=== PATIENT | female | born 1950 | race Caucasian/White ===

== ENCOUNTER → 2019-03-12 09:20 | Outpatient (BNVA) | payer MEDICARE, OTHER, SELFPAY | PROVIDERS: PCP Nurse Practitioner Family; Referring Provider Nurse Practitioner Family; Visit Provider Physical Therapy Assistant | DX: Z12.11 Encounter for screening for malignant neoplasm of colon (principal); I10 Essential (primary) hypertension; E11.9 Type 2 diabetes mellitus without complications ==

== ENCOUNTER 2019-05-08 06:04 | Day surgery (SDC) | payer MEDICARE, OTHER, SELFPAY ==
[2019-05-08 06:16] VITALS: BP 157/91; PULSE 94; RESP 18; TEMP 36.5; O2SAT 97
[2019-05-08] MEDS: Lactated Ringers 1,000 ML 80 ML IV (06:33)
--- NOTE | 2019-05-08 07:17 | W.PM.DSUDISC ---
Discharge Plan Disposition Patient Disposition: HOME Condition: Good Discharge Details Reason For Visit: Colonoscopy Attending Provider: Lynda Hooker Primary Care Provider: Paras Garcia Home Meds and New Rx's Prescriptions: Continued levothyroxine 25 mcg capsule 25 mcg PO DAILY RF: 0 atorvastatin 10 mg tablet 10 mg PO DAILY RF: 0 multivitamin 1 EACH tablet 1 tab PO DAILY RF: 0 calcium citrate-vitamin D3 1 EACH tablet 1 tab PO DAILY RF: 0 lisinopril 40 MG tablet 1 tab PO DAILY Qty: 90 RF: 0 aspirin [Aspir-81] 81 MG tablet,delayed release (DR/EC) 81 mg PO DAILY RF: 0 Discontinued polyethylene glycol 3350 17 gram/dose powder 238 g PO ONCE Qty: 238 RF: 0 bisacodyl [Dulcolax (bisacodyl)] 5 mg tablet,delayed release (DR/EC) 5 mg PO ONCE Qty: 4 RF: 0 Discharge Instructions Additional Instructions: Findings: Your colonoscopy showed diverticulosis. No polyps were found. Follow up: Consider screening colonoscopy in 10 years depending on overall health. Please call if you develop: fevers >101.5 Nausea or Vomiting Abdominal pain that is not transient DAY SURGERY UNIT POST COLONOSCOPY INSTRUCTIONS 1. Because there will be medication in your system for the next 24 hours, you may feel a little sleepy. Your coordination will be affected. Therefore: a. Do not drive or operate dangerous equipment for 24 hours. b. Do not drink alcohol beverages for 24 hours (not even beer). c. Plan to go home and rest for the day. 2. Generally there are no restrictions on your activity after a day or so has gone by, but you may feel a bit fatigued for a few days. 3 After you arrive home you may have a light meal and return to a normal diet as you can tolerate it without feeling sick to your stomach. 4. After surgery, you may feel pain or discomfort. This should be only transient, but if it persists please contact your doctor. 5. If there are any questions regarding the findings of your procedure, please feel free to contact your doctor. 6. If you are unable to contact your doctor with a problem, contact the hospital at [phone]. 7. Continue all your regular medications unless directed otherwise. I understand the above instructions and have no questions. Signature of Patient or Responsible Adult Escort Date/Time Name of Responsible Adult Escort Signature of Nurse Date/Time Activity:: Activity as Tolerated Diet:: As Tolerated Discharge Orders Discharge Orders: Discharge Order (Routine); Ordered 05/08/19 Ordered By: Lynda Hooker DS: Diagnosis Discharge Diagnosis (1) Diverticulosis: Status: Acute
[2019-05-08 08:20] VITALS: BP 127/64; PULSE 77; RESP 18; TEMP 36.4; O2SAT 95
--- NOTE | 2019-05-08 11:11 | COLE_ITS ---
DATE OF PROCEDURE: May 08, 2019 PREOPERATIVE DIAGNOSIS: Screening. POSTOPERATIVE DIAGNOSIS: Diverticulosis. PROCEDURE: Colonoscopy. SURGEON: Lynda Hooker M.D. ANESTHESIA: Monitored Anesthesia Care INDICATIONS: This is a 69-year-old woman who presents for routine colon evaluation. Her last colono scopy in 2008 showed diverticulosis. She has no family history of colon cancer. PROCEDURE: She was placed in the left Gibbs position. Propofol was titrated to sedation. Digital re ctal examination revealed no abnormalities. The scope was advanced to the cecum without difficulty. The ileocecal valve and appendiceal orifice were clearly identified. Her prep was excellent. The d istal ileum was briefly intubated and appeared normal. The scope was slowly withdrawn with no abnorm alities seen within the ascending, transverse, descending, sigmoid colon or rectum with the exception of moderate sigmoid diverticulosis. She was also noted to have some scattered diverticula throughou t the remainder of the colon, including the right colon. The rectum was normal, including on retrofl ex view. She tolerated the procedure well and was stable to recovery. She can consider a screening colonoscopy again in ten years depending on her overall health. cc: Paras Garcia DNP, MANUFACTURING SOFTWARE ENGINEER-C
== END 2019-05-08 08:25 | disposition home or self-care (01) ==
PROVIDERS: PCP Nurse Practitioner Family; Visit Provider Surgery
PROC: 0DJD8ZZ Inspection of Lower Intestinal Tract, Via Natural or Artificial Opening Endoscopic (ICD-10-PCS; CPT 45378; principal; 2019-05-08 07:30)
DX: Z12.11 Encounter for screening for malignant neoplasm of colon (principal); K57.30 Diverticulosis of large intestine without perforation or abscess without bleeding
CPT/HCPCS: G0121; J2250; J3010

== ENCOUNTER 2019-05-15 09:26 | Outpatient (REF) | payer MEDICARE, OTHER, SELFPAY ==
[2019-05-15 19:09] LABS: HCT 45.2 % (36.0-46.0); HGB 15.5 g/dL (12.0-15.5); Mean Corp. HGB Concentration 34.3 g/dL (32.0-36.0); Mean Corpuscular Hemoglobin 31.9 pg (27.0-33.0); Mean Platelet Volume 11.6 fL (8.0-11.0); Platelet Count 250 x1000/uL (130-400); RBC 4.86 m/cumm (4.00-5.20); RBC Distribution Width 12.3 % (11.7-14.6); White Blood Cell Count 5.26 k/cumm (4.4-10.8)
[2019-05-15 19:29] LABS: ALT 31 U/L (14-59); AST 17 U/L (15-37); Albumin 3.8 g/dL (3.4-5.0); Alkaline Phosphatase 105 U/L (46-116); Anion Gap 9.4 mmol/L (3-11); BUN 14 mg/dL (7-18); Bilirubin, Total 0.5 mg/dL (0.2-1.0); CO2 28.6 mmol/L (21.0-32.0); CREATININE 0.64 mg/dL (0.55-1.02); Calcium 8.9 mg/dL (8.5-10.1); Calculated LDL 92 mg/dL; Chloride 103 mmol/L (98-107); Cholesterol 173 mg/dL (50-200); Glucose 169 mg/dL (70-100); HDL Cholesterol 58 mg/dL (40-60); Potassium 4.4 mmol/L (3.5-5.1); Sodium 141 mmol/L (136-145); TSH (W/Ref FT4) 3.34 uIU/mL (0.36-3.74); Total Protein 7.3 g/dL (6.4-8.2); Triglyceride 118 mg/dL (30-150)
== END 2019-05-15 09:46 ==
LOC: NCHCN 09:26
PROVIDERS: PCP Nurse Practitioner Family; Visit Provider Nurse Practitioner Family
DX: E03.9 Hypothyroidism, unspecified (principal); I10 Essential (primary) hypertension; E11.9 Type 2 diabetes mellitus without complications
CPT/HCPCS: 80053; 80061; 83721; 85027; 84443

== ENCOUNTER 2019-06-01 00:31 | Outpatient (CLI) | payer MEDICARE, OTHER, SELFPAY ==
--- NOTE | 2019-06-01 15:41 | DI.MAMMO_ITS ---
SYMPTOM/DIAGNOSIS: SCREENING Z12.31, FAM HX Z80.3 MAMMOGRAMS: 06/01 Mammograms were interpreted according to the usual protocol including computer analysis with CAD system, tomosynthesis and C view imaging. The breasts are of moderate density with fairly symmetrical distribution of fibroglandular tissue. No dominant mass or clumped microcalcification identified in either breast. The current examination is compared with previous examinations including March 2016 and there has been no gross interval change in appearance in comparison with the previous studies. CONCLUSION: No specific evidence of malignancy at this time. Routine screening examinations are suggested at yearly intervals due to the family history of breast carcinoma. Category 1, breast density category B MQSA ASSESSMENT OF FINDINGS: Negative. Category 1. Patient will receive a letter notifying them of these results. BI-RADS category B. There are scattered areas of fibroglandular density.
== END 2019-06-01 00:51 ==
PROVIDERS: PCP Nurse Practitioner Family; Visit Provider Nurse Practitioner Family
DX: Z12.31 Encounter for screening mammogram for malignant neoplasm of breast (principal); Z80.3 Family history of malignant neoplasm of breast
CPT/HCPCS: 77063; 77067

== ENCOUNTER 2020-05-23 19:34 | Outpatient (REF) | payer MEDICARE, OTHER, SELFPAY ==
[2020-05-23 19:48] LABS: ALT 31 U/L (14-59); AST 18 U/L (15-37); Albumin 3.8 g/dL (3.4-5.0); Alkaline Phosphatase 106 U/L (46-116); Anion Gap 8.7 mmol/L (3-11); BUN 18 mg/dL (7-18); Bilirubin, Total 0.5 mg/dL (0.2-1.0); CO2 29.3 mmol/L (21.0-32.0); CREATININE 0.75 mg/dL (0.55-1.02); Calcium 9.2 mg/dL (8.5-10.1); Chloride 104 mmol/L (98-107); Glucose 206 mg/dL (74-106); Potassium 4.1 mmol/L (3.5-5.1); Sodium 142 mmol/L (136-145); TSH (W/Ref FT4) 1.56 uIU/mL (0.36-3.74)
[2020-05-23 19:50] LABS: Hemoglobin A1C 6.8 % (<5.7)
== END 2020-05-23 19:54 ==
LOC: NCHCN 19:34
PROVIDERS: PCP Nurse Practitioner Family; Visit Provider Nurse Practitioner Family
DX: E03.9 Hypothyroidism, unspecified (principal); E11.9 Type 2 diabetes mellitus without complications; I10 Essential (primary) hypertension
CPT/HCPCS: 80053; 83036; 84443

== ENCOUNTER 2021-01-05 16:27 | Outpatient (REF) | payer MEDICARE, OTHER, SELFPAY ==
[2021-01-05 18:18] LABS: HCT 46.3 % (36.0-46.0); HGB 15.8 g/dL (11.2-15.7); MCH 31.8 pg (27.0-33.0); MCHC 34.1 % (32.0-36.0); MCV 93.2 fL (80-95); MPV 11.7 fL (8.0-11.0); Platelet Count 224 10^3/uL (130-400); RBC 4.97 10^6/uL (3.93-5.22); RDW 11.9 % (11.7-14.6); RDW-SD 39.6 fL; WBC 5.51 10^3/uL (4.4-10.8)
[2021-01-05 18:30] LABS: Hemoglobin A1C 7.7 % (<5.7)
[2021-01-05 18:37] LABS: ALT 39 U/L (14-59); AST 18 U/L (15-37); Alkaline Phosphatase 111 U/L (46-116); Anion Gap 4.2 mmol/L (3-11); BUN 15 mg/dL (7-18); Bilirubin, Total 0.6 mg/dL (0.2-1.0); CO2 31.8 mmol/L (21.0-32.0); CREATININE 0.7 mg/dL (0.55-1.02); Calcium 9.2 mg/dL (8.5-10.1); Calculated LDL 92 mg/dL (<100); Chloride 104 mmol/L (98-107); Cholesterol 178 mg/dL (<200); Glucose 204 mg/dL (74-106); HDL Cholesterol 59 mg/dL (40-60); Potassium 3.9 mmol/L (3.5-5.1); Sodium 140 mmol/L (136-145); TSH (W/Ref FT4) 2.02 uIU/mL (0.36-3.74); Total Protein 7.4 g/dL (6.4-8.2); Triglyceride 139 mg/dL (<150)
[2021-01-09 10:15] LABS: HIV-1/2 Ag & Ab Screen Negative (Negative)
[2021-01-09 10:35] LABS: Hepatitis C Ab w Rflx HCV PCR Negative (Negative)
== END 2021-01-05 16:28 | disposition home or self-care (01) ==
LOC: NCHCN 16:27
PROVIDERS: PCP Nurse Practitioner Family; Visit Provider Nurse Practitioner Family
DX: E03.9 Hypothyroidism, unspecified (principal); E11.9 Type 2 diabetes mellitus without complications; Z11.4 Encounter for screening for human immunodeficiency virus [HIV]; Z11.59 Encounter for screening for other viral diseases
CPT/HCPCS: 80053; 80061; 85027; 86803; 87389; 83036; 84443

== ENCOUNTER 2021-01-16 02:47 | Outpatient (CLI) | payer MEDICARE, OTHER, SELFPAY ==
--- NOTE | 2021-01-16 12:27 | DI.MAMMO_ITS ---
EXAM: MG MAMMO SCREENING CLINICAL HISTORY: SCREENING,Z12.39. TECHNIQUE: Bilateral full field digital CC and MLO mammographic images were obtained with 3D tomosyn thesis and utilizing computer aided detection (CAD). COMPARISON: Prior mammograms dating back to 1013, the most recent being May 2019. FINDINGS: There are no new spiculated masses nor malignant appearing microcalcification groups. There is no significant architectural distortion nor skin thickening-retraction. IMPRESSION: No radiographic evidence of malignancy. BI-RADS Category 1 - Negative Breast Density - Category B - Scattered areas of fibroglandular density Breast density Category C or D implies that the patient has dense breast tissue. Dense breast tissue can make it harder to find cancer on a mammogram. Dense breast tissue is also associated with an incr eased risk of breast cancer. This information about the result of the mammogram report was provided to the patient to raise their awareness. Use this report when you speak with the patient about their risks for breast cancer, which includes their family history. At that time, you may recommend additional screening tests (Ultrasoun d or MRI) as these tests may add significant information. A negative radiographic report should not delay biopsy if a dominant or clinically suspicious mass is present. Up to ten percent of cancers are not identified on mammography. A negative report may reinforce clinical impression. Adenosis and dense breasts may obscure an underlying neoplasm. False positive reports average 6 to 10%. Patient will receive a letter notifying them of these results.
== END 2021-01-16 03:07 ==
PROVIDERS: PCP Nurse Practitioner Family; Visit Provider Nurse Practitioner Family
DX: Z12.31 Encounter for screening mammogram for malignant neoplasm of breast (principal)
CPT/HCPCS: 77063; 77067

== ENCOUNTER 2021-09-26 08:41 | Outpatient (REF) | payer MEDICARE, OTHER, SELFPAY ==
[2021-09-27 16:08] LABS: COVID-19 RT-PCR UVMMC Result Negative (Negative)
== END 2021-09-26 08:42 | disposition home or self-care (01) ==
LOC: NCHCN 08:41
PROVIDERS: PCP Nurse Practitioner Family; Visit Provider Nurse Practitioner
DX: Z20.822 Contact with and (suspected) exposure to COVID-19 (principal); J39.2 Other diseases of pharynx
CPT/HCPCS: U0003; U0005

== ENCOUNTER 2021-12-26 16:25 | Outpatient (REF) | payer MEDICARE, OTHER, SELFPAY ==
[2021-12-26 17:42] LABS: BUN 16 mg/dL (7-18); CREATININE 0.6 mg/dL (0.55-1.02); Calcium 9.4 mg/dL (8.5-10.1); Chloride 104 mmol/L (98-107); Glucose 166 mg/dL (74-106); Potassium 4.3 mmol/L (3.5-5.1); Sodium 142 mmol/L (136-145); TSH (W/Ref FT4) 2.21 uIU/mL (0.36-3.74)
== END 2021-12-26 16:26 | disposition home or self-care (01) ==
LOC: NCHCN 16:25
PROVIDERS: PCP Nurse Practitioner Family; Visit Provider Nurse Practitioner Family
DX: E03.9 Hypothyroidism, unspecified (principal)
CPT/HCPCS: 80048; 84443

== ENCOUNTER 2022-06-01 16:49 | Outpatient (REF) | payer MEDICARE, OTHER, SELFPAY ==
[2022-06-03 13:05] LABS: COVID-19 RT-PCR UVMMC Result Negative (Negative)
== END 2022-06-01 16:50 | disposition home or self-care (01) ==
LOC: LBN 16:49
PROVIDERS: PCP Nurse Practitioner Family; Visit Provider Physician Assistant Medical
DX: J02.9 Acute pharyngitis, unspecified (principal); Z20.822 Contact with and (suspected) exposure to COVID-19
CPT/HCPCS: 87077; U0003; 87070

== ENCOUNTER 2023-06-28 21:45 | Outpatient (REF) | payer MEDICARE, SELFPAY ==
[2023-06-27 19:07] LABS: Abs Immature Grans 0.03 10^3/uL (0.0-0.06); Absolute Basophil Count 0.07 10^3/uL (0.0-0.2); Absolute Eosinophil Count 0.35 10^3/uL (0.0-0.7); Absolute Lymphocyte Count 2.41 10^3/uL (1.2-3.4); Absolute Neutrophil Count 4.76 10^3/uL (1.2-6.7); Basophils % 0.9; Eosinophils % 4.3; HCT 46.5 % (36.0-46.0); HGB 16.9 g/dL (11.2-15.7); Immature Grans % 0.4; Lymphocytes % 29.7; MCH 33.8 pg (27.0-33.0); MCHC 36.3 % (32.0-36.0); MCV 93 fL (80-95); MPV 10.8 fL (8.0-11.0); Monocytes % 6.2; Neutrophils % 58.5; Platelet Count 266 10^3/uL (130-400); WBC 8.12 10^3/uL (4.4-10.8)
[2023-06-27 20:04] LABS: COMMENT (LAB VIEW ONLY) 35.36 mg/dL; Microalb ug/mg Crea 80.9 ug/mg Cr
[2023-06-27 20:13] LABS: ALT 29 U/L (14-59); AST 20 U/L (15-37); Albumin 3.9 g/dL (3.4-5.0); Alkaline Phosphatase 115 U/L (46-116); Anion Gap 9.5 mmol/L (3-11); BUN 16 mg/dL (7-18); Bilirubin, Total 0.4 mg/dL (0.2-1.0); CO2 27.5 mmol/L (21.0-32.0); CREATININE 0.6 mg/dL (0.55-1.02); Calcium 9.6 mg/dL (8.5-10.1); Calculated LDL 85 mg/dL (<100); Chloride 100 mmol/L (98-107); Cholesterol 187 mg/dL (<200); Estimated GFR 94.72 (mL/min/1.73m2); Glucose 196 mg/dL (74-106); HDL Cholesterol 67 mg/dL (40-60); Potassium 3.8 mmol/L (3.5-5.1); Sodium 137 mmol/L (136-145); TSH 2.04 uIU/mL (0.36-3.74); Total Protein 8.1 g/dL (6.4-8.2); Triglyceride 178 mg/dL (<150)
[2023-06-27 20:56] LABS: Hemoglobin A1C 7.6 % (<5.7)
== END 2023-06-28 21:46 | disposition home or self-care (01) ==
LOC: NCHCN 21:45
PROVIDERS: Visit Provider Nurse Practitioner Family
DX: E03.9 Hypothyroidism, unspecified (principal); E11.9 Type 2 diabetes mellitus without complications; E78.5 Hyperlipidemia, unspecified; R01.1 Cardiac murmur, unspecified
CPT/HCPCS: 80053; 80061; 82043; 82570; 83036; 84443; 85025

== ENCOUNTER → 2023-07-24 04:07 | Outpatient (CLI) | payer MEDICARE, OTHER, SELFPAY ==
--- NOTE | 2023-07-24 | DI.MRI_ITS ---
Exam(s) MR LOWER JOINT LT WO EXAM: MR LOWER JOINT LT WO CLINICAL HISTORY: LEFT KNEE JOINT PAIN x 3 MONTHS M25.562 EFFUSION LEFT KNEE M25.462. TECHNIQUE: Multiplanar multisequence MRI was performed. COMPARISON: CR LEFT KNEE 3 VIEW COMPLETE from 08/13/2017 which showed end-stage degenerative styles ges of the medial femoral tibial joint space. No more recent exams are available for comparison. FINDINGS: BONES/JOINTS: A small joint effusion is present. Several loose bodies are noted. Obliteration of the medial femoral tibial joint space. Complete loss of cartilage. Large osteophyte s projecting from the medial femoral condyle and medial tibial plateau. Degenerative signal changes in the bones and small subchondral cysts. Spurring at femoral intercondylar notch. Mild spurring fr om the lateral femoral condyle and lateral tibial plateau. Exostosis of the posterior medial femoral metaphysis.. No evidence of fracture or contusion. Patellofemoral joint shows moderate loss of cartilage, greater on the medial facet. Periarticular sp urring present. Small enthesophyte at the quadriceps insertion. TENDONS: Extensor mechanism: Unremarkable. Medial retinaculum: Unremarkable. Lateral retinaculum: Unremarkable. Popliteus: Unremarkable. MUSCLES: Unremarkable. MENISCI: The medial meniscus extremely diminutive. Severely degenerated.. The lateral meniscus show s degenerative signal changes. No discrete tear.. SOFT TISSUES: Cortez's cyst measuring 3 by 1.5 by 6.5 cm. LIGAMENTS: Anterior Cruciate: Thinned. Posterior Cruciate: Unremarkable. Medial Collateral:Unremarkable. Lateral Collateral: Unremarkable. IMPRESSION: End-stage degenerative changes of the medial femoral tibial joint space. Moderate degenerative fraser es of the patellofemoral joint. Mild degenerative changes of the lateral femoral tibial joint. Bake r's cyst. DATA REPOSITORY:
--- NOTE | 2023-07-24 08:24 | DI.MAMMO_ITS ---
Exam(s) MAMMO SCREENING EXAM: MAMMO SCREENING CLINICAL HISTORY: SCREENING FOR BREAST CANCER Z12.39 FAM HX BREAST CANCER Z80.3 TECHNIQUE: Mammograms were interpreted according to the usual protocol including computer analysis w [employer] CAD system, tomosynthesis and C-view imaging. COMPARISON: 2013 through 2020 FINDINGS: The breasts are composed of mainly fatty density , Breast Density category A. No suspicious masses or suspicious microcalcifications are seen. No skin thickening or abnormal axillary lymph nodes are seen. There has been no significant change from prior exams. IMPRESSION: BI-RADS Category 1, Negative mammogram Yearly screening mammography is recommended. Breast Density - Category A, fatty density. A negative radiographic report should not delay biopsy if a dominant or clinically suspicious mass is present. Up to ten percent of cancers are not identified on mammography. A negative report may reinforce clinical impression. Adenosis and dense breasts may obscure an underlying neoplasm. False positive reports average 6 to 10%. Patient will receive a letter notifying them of these results.
== END ==
PROVIDERS: Visit Provider Nurse Practitioner Family
DX: Z12.31 Encounter for screening mammogram for malignant neoplasm of breast (principal); R92.313 Mammographic fatty tissue density, bilateral breasts; M17.12 Unilateral primary osteoarthritis, left knee; M71.22 Synovial cyst of popliteal space [Baker], left knee
CPT/HCPCS: 73721; 77063; 77067

== ENCOUNTER → 2023-09-04 03:58 | Outpatient (CLI) | payer MEDICARE, OTHER, SELFPAY | PROVIDERS: Visit Provider Nurse Practitioner Family | DX: R01.1 Cardiac murmur, unspecified (principal) | CPT/HCPCS: 93306 ==

== ENCOUNTER → 2024-01-07 20:55 | Outpatient (CLI) | payer MEDICARE, OTHER, SELFPAY ==
--- NOTE | 2024-01-07 15:00 | DI.RAD_ITS ---
Exam(s) XR CERVICAL SPINE COMP 4-5V EXAM: XR CERVICAL SPINE COMP 4-5V CLINICAL HISTORY: M25.512 Pain in left shoulder, left sided C5-6 and C6-C7 nerve distribution. TECHNIQUE: 2D digital imaging was performed. Five views were performed. COMPARISON: No exams were available for comparison FINDINGS: BONES: No fracture or destructive lesion. Vertebral bodies are unremarkable. Facet degenerative fraser es present throughout. DISKS: Mild narrowing of the C2-3 disc space. Mild narrowing of the C3-4 disc space with small endpl ate osteophytes. Moderate narrowing of the C4-5 disc space with prominent endplate osteophytes. Rig ht-sided neural foraminal narrowing. Moderate narrowing of the C5-6 disc space. Posteriorly project ing endplate osteophytes cause right neural foraminal narrowing. Mild narrowing of the C6-7 disc spa ce. Small endplate osteophytes. No significant neural foraminal narrowing. ALIGNMENT: Degenerative straightening of the normal cervical lordosis. The atlantoaxial articulation s are normal. SOFT TISSUE: Calcification projecting to the right of the cervical spine in the lower neck which like ly represents carotid artery calcification. The lung apices are clear. The airway appears normal. IMPRESSION: Degenerative changes greatest at C4-5 and C5-6 causing right sided neural foraminal narrowing. DATA REPOSITORY: RADIATION DOSE DELIVERED:
== END ==
PROVIDERS: Visit Provider Student in an Organized Health Care Education/Training Program
DX: M25.512 Pain in left shoulder (principal); M50.321 Other cervical disc degeneration at C4-C5 level; M50.322 Other cervical disc degeneration at C5-C6 level
CPT/HCPCS: 72050

== ENCOUNTER 2024-01-13 14:45 | Outpatient (REF) | payer MEDICARE, OTHER, SELFPAY ==
[2024-01-13 15:28] LABS: HCT 46.3 % (36.0-46.0); HGB 16.1 g/dL (11.2-15.7); MCH 31.9 pg (27.0-33.0); MCHC 34.8 % (32.0-36.0); MCV 92 fL (80-95); MPV 11.4 fL (8.0-11.0); Platelet Count 262 10^3/uL (130-400); RBC 5.05 10^6/uL (3.93-5.22); RDW 11.9 % (11.7-14.6); RDW-SD 39.8 fL; WBC 6.61 10^3/uL (4.4-10.8)
[2024-01-13 15:48] LABS: ALT 28 U/L (14-59); AST 17 U/L (15-37); Albumin 3.8 g/dL (3.4-5.0); Alkaline Phosphatase 109 U/L (46-116); Anion Gap 9.7 mmol/L (3-11); BUN 21 mg/dL (7-18); Bilirubin, Total 0.3 mg/dL (0.2-1.0); CO2 27.3 mmol/L (21.0-32.0); CREATININE 0.6 mg/dL (0.55-1.02); Calcium 9.3 mg/dL (8.5-10.1); Chloride 104 mmol/L (98-107); Estimated GFR 94.72 (mL/min/1.73m2); Glucose 206 mg/dL (74-106); Potassium 4.3 mmol/L (3.5-5.1); Sodium 141 mmol/L (136-145); Total Protein 7.8 g/dL (6.4-8.2)
[2024-01-13 16:11] LABS: Hemoglobin A1C 8.1 % (<5.7)
== END 2024-01-13 14:46 | disposition home or self-care (01) ==
LOC: NCHCN 14:45
PROVIDERS: PCP Nurse Practitioner Family; Visit Provider Nurse Practitioner Family
DX: E11.9 Type 2 diabetes mellitus without complications (principal); Z01.818 Encounter for other preprocedural examination
CPT/HCPCS: 80053; 85027; 83036

== ENCOUNTER → 2024-02-27 18:04 | Outpatient (CLI) | payer MEDICARE, OTHER, SELFPAY ==
--- NOTE | 2024-02-27 | DI.RAD_ITS ---
Exam(s) XR SHOULDER LT COMPLETE 2+V EXAM: XR SHOULDER LT COMPLETE 2+V CLINICAL HISTORY: pain left shoulder. TECHNIQUE: 2D digital imaging was performed of the left shoulder. Five images were obtained. AP, G rashey, Y-view and axillary views were obtained. COMPARISON: No exams were available for comparison FINDINGS: BONES: No acute fracture is present. No bony destructive lesion is seen. JOINTS: No dislocation present. Mild degenerative changes are seen at the acromioclavicular joint. T he glenohumeral joint is well maintained. SOFT TISSUE: There is soft tissue calcifications adjacent to the humeral head laterally suggesting ca lcific tendinitis. IMPRESSION: Mild degenerative changes seen in the left shoulder. DATA REPOSITORY: RADIATION DOSE DELIVERED:
== END ==
PROVIDERS: Visit Provider Physician Assistant Medical
DX: M19.012 Primary osteoarthritis, left shoulder (principal)
CPT/HCPCS: 73030

== ENCOUNTER → 2024-03-24 12:20 | Outpatient (BNVA) | payer MEDICARE, OTHER, SELFPAY | PROVIDERS: PCP Nurse Practitioner Family; Referring Provider Nurse Practitioner Family; Visit Provider Student in an Organized Health Care Education/Training Program | DX: M75.32 Calcific tendinitis of left shoulder (principal) | CPT/HCPCS: 99203 ==

== ENCOUNTER 2024-05-11 20:09 | Outpatient (REF) | payer MEDICARE, OTHER, SELFPAY | END 2024-05-11 20:10 | disposition home or self-care (01) | LOC: LBN 20:09 | PROVIDERS: PCP Nurse Practitioner Family; Visit Provider Nurse Practitioner Family | DX: N76.0 Acute vaginitis (principal) | CPT/HCPCS: 87480; 87510; 87660 ==

== ENCOUNTER 2024-05-14 13:29 | Outpatient (REF) | payer MEDICARE, OTHER, SELFPAY ==
--- NOTE | 2024-05-14 10:30 | PAPFT_PTH ---
PATIENT: Thais Graham LOC: [facility] U#:[id number] AGE/SX: 74/F ROOM: RE05/14/[address]: Paras Hobson DNP : 1950 BED: DIS: 05/14/2024 SPEC #: [id number] RECD: 05/14/24 18:30 STATUS: BEATRICE REQ #: [id number] KATHYA: 05/14/24 10:[address]: Paras Remy DEPT: [facility] Cytology RECD BY: Maty Villegas ENTERED: 05/14/24 18:30 SP TYPE: PAPFT OTHR DR: Giuliana Gonzalez Tissues: 1 - CX/ENDOCX FOR PAP SMEARS Procedures: PAP THIN PREP/UVM Screening HPV DNA PROBE Comments: [id number] (HPV 16 & 18/45)
== END 2024-05-14 13:30 | disposition home or self-care (01) ==
LOC: LBN 13:29
PROVIDERS: PCP Nurse Practitioner Family; Visit Provider Nurse Practitioner Family
DX: Z12.4 Encounter for screening for malignant neoplasm of cervix (principal)
CPT/HCPCS: 88142; 87624

== ENCOUNTER 2024-06-09 09:14 | Emergency (ER) | payer MEDICARE, OTHER, SELFPAY ==
[2024-06-09 09:16] VITALS: BP 149/81; PULSE 89; RESP 16; TEMP 36.4; O2SAT 96
--- NOTE | 2024-06-09 09:49 | W.ED.GENAD ---
Discharge Plan Disposition Patient Disposition: Home Condition: Stable Discharge Details Clinical Impression: Cervical cancer, Nonmenstrual vaginal bleeding Primary Care Provider: Giuliana Gonzalez ED Provider: Sofia Fisher Home Meds and New Rx's Prescriptions: New tranexamic acid 650 mg tablet 1,300 mg PO Q8H 5 Days Qty: 30 0RF No Action celecoxib [Celebrex] 200 mg capsule 200 mg PO DAILY metformin 500 mg tablet 500 mg PO TID levothyroxine 25 mcg capsule 25 mcg PO DAILY atorvastatin 10 mg tablet 10 mg PO DAILY multivitamin 1 EACH tablet 1 tab PO DAILY calcium citrate-vitamin D3 1 EACH tablet 1 tab PO DAILY lisinopril 40 MG tablet 1 tab PO DAILY Qty: 90 triamcinolone acetonide 0.1 % cream TOPICAL estradiol 0.01 % (0.1 mg/gram) cream VAGINAL Patient Comments: INSERT 1 APPLICATOR(S) VAGINALLY EVERY NIGHT FOR 1 WEEK, THEN DECREASE TO 2-3 TIMES PER WEEK aspirin [Aspir-81] 81 MG tablet,delayed release (DR/EC) 81 mg PO DAILY Discharge Instructions Instructions: Cervical Cancer (DC) Additional Instructions: You were seen in the emergency department today for evaluation of vaginal bleeding due to your cervical cancer. You had a full evaluation in our emergency department, had laboratory studies that did not show anemia, blood clotting abnormalities, and was otherwise quite reassuring. I did discuss your case with LIFE SCIENCE TECHNICIAN, and you need to have your imaging and follow-up done at [facility] so that everything is within their system and they can make the best recommendations for your ongoing cancer care. I did provide you a medication called tranexemic acid, which you will take 3 times a day for the next 5 days to see if it improves your bleeding. Please continue to take all other medications as prescribed, and call your outpatient providers to discuss your emergency department visit and whether or not you are clinic visit can be escalated to a sooner date. If you have sudden change or worsening of your bleeding, best case would be for you to present to the [facility] emergency department because they have the ability to do specific [place] procedures that could help your bleeding. Of course if you are unable to make it to that department, you can always return to emergency department for reevaluation. Thank you for allowing us to be part of your care. Discharge Data Discharge Date/Time-TO BE ENTERED AT DEPARTURE: 06/09/24 11:21 HPI General Mode of arrival: ambulatory. Date/Time Provider Initiated Documentation: 06/09/24 09:21. Limitations to Documentation: no limitations. Information obtained by: patient, family and old records reviewed. HPI Narrative: HPI: This is a 74-year-old female patient with a recent diagnosis of squamous cell carcinoma of the cervix, who has not yet undergone workup or management, presenting for evaluation of vaginal bleeding. The patient reports that she had vaginal irritation and had a Pap smear done that revealed squamous cell carcinoma, has not had any additional imaging to evaluate for the staging and invasiveness of the cancer, has not had any interventions for management. She was started on vaginal estradiol and triamcinolone ointment, which she states has not been helping her bleeding. She presents today because she had a larger volume of bright red blood than typical on her panty liner last night, notes that she tends to bleed more at night but notices bleeding every time she wipes after using the bathroom. She has otherwise been in her normal state of health, without fever, chills, body aches, abdominal pain. She notes irritation when urine runs over her vagina but has not noted any dysuria or urinary frequency changes. The patient endorses significant anxiety over her cancer diagnosis. Exam: Gen: Awake and alert, in no apparent distress HEENT: Non-icteric sclera Neck: Supple Lungs: No apparent respiratory distress, normal respiratory effort. CV: Appears well perfused, strong distal pulses Abdomen: Non-distended, soft, nontender, no rigidity, rebound, or guarding : Pelvic examination supervised by ALBA Valerio, revealing irritated external vaginal and vulvar skin, with redness but no induration, fluctuance, or ulcerations. The cervix is visible just inside the vaginal introitus, with a fungating and friable mass appreciated. It bleeds easily with bimanual examination and is tender and uncomfortable. MSK: Moves 4 extremities without apparent limitation in ROM Skin: Visualized skin without rashes, cyanosis. Neuro: Normal Gait, no obvious focal deficits or facial asymmetry. Speaks in full, clear sentences. Psych: Appropriate for situation. MDM: This is a 74-year-old female patient presenting for evaluation of vaginal bleeding. I am most concerned for cervical bleeding secondary to her known cancer, certainly considered abnormal uterine bleeding, uterine cancer, coagulopathy, anemia. The patient's symptoms are less consistent with urinary tract infection, and she has no intra-abdominal tenderness or concerning exam findings to increase my concern. Bowel obstruction, perforation, diverticulitis, appendicitis, etc. Will obtain basic laboratory studies to include CBC, CMP, PT/INR. I will reach out to LIFE SCIENCE TECHNICIAN to discuss next Epson the patient's workup and management ED Course: LIFE SCIENCE TECHNICIAN evaluated the patient's labs and history, states that they do not see any indication for advanced imaging at this time as the patient will have to have advanced imaging performed at [facility] with the Anirudh Plato team and we want to avoid repetitive exposures to radiation. They do believe that the patient would benefit from presenting to [facility] if she was to have a sudden change or worsening of her bleeding, as they have gotten off specific interventions that could be utilized in this scenario to control bleeding. In the meantime I started the patient on TXA, oral, to trial for the next 5 days to see if it improves her bleeding sequelae. I independently interpreted the laboratory studies, which show no significant leukocytosis, anemia, or thrombocytopenia. The chemistry panel is without evidence of electrolyte abnormality, kidney dysfunction, or liver injury. All of this information was shared with the patient, And much of the patient's questions and concerns are regarding her prognosis and neck steps of cancer management, which will have to be deferred to her oncologist in the outpatient environment. We did discuss return precautions, including sudden change or worsening of her bleeding, abdominal pain, fever or chills, dizziness. At this time, the patient has had a full medical evaluation and is safe for discharge to home. They are hemodynamically stable, ambulatory, and tolerating PO. They are understanding of the follow-up plan and return precautions. They left our facility without incident. Sofia Fisher MD Related Data Home Medications ?Medication ?Instructions ?Recorded ?Confirmed calcium citrate 315 mg-vitamin D3 1 tab PO DAILY 01/26/13 06/09/24 5 mcg (200 unit) tablet multivitamin 1 tab PO DAILY 01/26/13 06/09/24 lisinopril 40 mg tablet 1 tab PO DAILY #90 tab-caps 06/10/13 06/09/24 aspirin 81 mg tablet,delayed 81 mg PO DAILY 02/22/17 06/09/24 release (Aspir-) atorvastatin 10 mg tablet 10 mg PO DAILY 03/11/19 06/09/24 levothyroxine 25 mcg capsule 25 mcg PO DAILY 03/11/19 06/09/24 celecoxib 200 mg capsule (Celebrex) 200 mg PO DAILY 03/11/24 06/09/24 metformin 500 mg tablet 500 mg PO TID 03/24/24 06/09/24 estradiol 0.01% (0.1 mg/gram) vaginal 06/09/24 vaginal cream tranexamic acid 650 mg tablet 1,300 mg (2 x 650 mg) PO Q8H 5 06/09/24 days #30 tabs triamcinolone acetonide 0.1 % applic topical 06/09/24 topical cream Previous Rx's ?Medication ?Instructions ?Recorded tranexamic acid 650 mg tablet 1,300 mg (2 x 650 mg) PO Q8H 5 06/09/24 days #30 tabs Allergies Allergy/AdvReac Type Severity Reaction Status Date / Time DUST Allergy Unknown Other (See Uncoded 06/09/24 09:24 Comment) General Stated Complaint: LIFE SCIENCE TECHNICIAN LOURDES: 4 Course Vital Signs Vital signs: Vital Signs Temperature 36.4 C 06/09/24 09:16 Pulse 89 06/09/24 09:16 Respiratory Rate 16 06/09/24 09:16 Blood Pressure 149/81 H 06/09/24 09:16 Pulse Oximetry 96 06/09/24 09:16 Temperature 36.4 C 06/09/24 09:16 Temperature Source Oral 06/09/24 09:16 Pulse 89 06/09/24 09:16 Respiratory Rate 16 06/09/24 09:16 Blood Pressure 149/81 H 06/09/24 09:16 Blood Pressure Position Sitting 06/09/24 09:16 Pulse Oximetry 96 06/09/24 09:16 Oxygen Delivery Method Room Air 06/09/24 09:16 Oxygen Flow Rate 0 06/09/24 09:16 Pain Level 0 06/09/24 09:16 Medical Decision Making Quality:SDOH Health Related Social Needs: No Data to Display PFSH All Active Problems (Updated 06/09/24 @ 10:56 by Sofia Fisher MD) Nonmenstrual vaginal bleeding (Acute) Cervical cancer (Acute) Calcific tendinitis of left shoulder (Acute) Diverticulosis (Acute) Medical History (Updated 06/09/24 @ 10:56 by Sofia Fisher MD) HTN (hypertension) Hypothyroidism Exertional shortness of breath Left shoulder pain Left knee pain Family history of breast cancer Urge incontinence of urine Hyperlipidemia Type 2 diabetes mellitus Surgical History (Updated 05/08/19 @ 07:58 by Lynda Hooker MD) History of colonoscopy 05/08/19 Social History (Updated 03/12/19 @ 09:48 by Era Wiggins RN) Smoking/Tobacco Use Status: Former Tobacco Use Smoking risk assessment performed?: Yes Alcohol Intake: never Drug use: Never Substance use type: does not use Housing: house Do you feel safe at home: Yes Do you feel safe in your relationship?: Yes
[2024-06-09 10:16] LABS: Abs Immature Grans 0.04 10^3/uL (0.0-0.06); Absolute Basophil Count 0.06 10^3/uL (0.0-0.2); Absolute Eosinophil Count 0.22 10^3/uL (0.0-0.7); Absolute Lymphocyte Count 1.28 10^3/uL (1.2-3.4); Absolute Monocyte Count 0.63 10^3/uL (0.1-0.8); Absolute Neutrophil Count 6.25 10^3/uL (1.2-6.7); Basophils % 0.7 %; Eosinophils % 2.6 %; HCT 44.3 % (36.0-46.0); HGB 14.9 g/dL (11.2-15.7); Immature Grans % 0.5 %; Lymphocytes % 15.1 %; MCH 30.8 pg (27.0-33.0); MCHC 33.6 % (32.0-36.0); MCV 92 fL (80-95); MPV 10.4 fL (8.0-11.0); Monocytes % 7.4 %; Neutrophils % 73.7 %; Platelet Count 278 10^3/uL (130-400); RBC 4.83 10^6/uL (3.93-5.22); RDW 11.8 % (11.7-14.6); RDW-SD 39.4 fL; WBC 8.48 10^3/uL (4.4-10.8)
[2024-06-09 10:27] LABS: Prothrombin Time 10.3 sec (9.1-11.1)
[2024-06-09 10:32] LABS: ALT 25 U/L (14-59); AST 14 U/L (15-37); Albumin 3.7 g/dL (3.4-5.0); Alkaline Phosphatase 118 U/L (46-116); Anion Gap 7.4 mmol/L (3-11); BUN 11 mg/dL (7-18); Bilirubin, Total 0.47 mg/dL (0.2-1.0); CO2 28.6 mmol/L (21.0-32.0); CREATININE 0.6 mg/dL (0.55-1.02); Calcium 9.5 mg/dL (8.5-10.1); Chloride 102 mmol/L (98-107); Estimated GFR 94.13 (mL/min/1.73m2); Glucose 258 mg/dL (74-106); Potassium 3.6 mmol/L (3.5-5.1); Sodium 138 mmol/L (136-145); Total Protein 7.7 g/dL (6.4-8.2)
[2024-06-09 11:20] VITALS: BP 149/81; PULSE 80; RESP 16; TEMP 36.4; O2SAT 96
== END 2024-06-09 11:21 | disposition home or self-care (01) ==
PROVIDERS: Emergency Provider Emergency Medicine; PCP Nurse Practitioner Family
DX: N93.9 Abnormal uterine and vaginal bleeding, unspecified (principal); C53.9 Malignant neoplasm of cervix uteri, unspecified
CPT/HCPCS: 36415; 80053; 99283; 85025; 85610; 99284

== ENCOUNTER 2024-07-22 10:28 | Outpatient (CLI) | payer MEDICARE, OTHER, SELFPAY ==
[2024-07-22 08:33] LABS: CREATININE 0.8 mg/dL (0.55-1.02); Estimated GFR 77.27 (mL/min/1.73m2)
== END 2024-07-22 10:29 | disposition home or self-care (01) ==
LOC: LBO 10:29
PROVIDERS: PCP Nurse Practitioner Family; Visit Provider Radiology Radiation Oncology
DX: C52 Malignant neoplasm of vagina (principal)
CPT/HCPCS: 36415; 82565

== ENCOUNTER 2024-08-04 04:35 | Outpatient (CLI) | payer MEDICARE, OTHER, SELFPAY ==
[2024-08-04 07:17] LABS: Abs Immature Grans 0.13 10^3/uL (0.0-0.06); Absolute Basophil Count 0.09 10^3/uL (0.0-0.2); Absolute Eosinophil Count 0.52 10^3/uL (0.0-0.7); Absolute Lymphocyte Count 1.66 10^3/uL (1.2-3.4); Absolute Monocyte Count 1.31 10^3/uL (0.1-0.8); Basophils % 0.5 %; Eosinophils % 2.8 %; HCT 39.5 % (36.0-46.0); HGB 13.3 g/dL (11.2-15.7); Immature Grans % 0.7 %; Lymphocytes % 8.9 %; MCHC 33.7 % (32.0-36.0); MCV 89 fL (80-95); MPV 9.8 fL (8.0-11.0); Neutrophils % 80.1 %; Platelet Count 343 10^3/uL (130-400); RBC 4.43 10^6/uL (3.93-5.22); RDW 11.7 % (11.7-14.6); RDW-SD 37.6 fL; WBC 18.69 10^3/uL (4.4-10.8)
[2024-08-04 07:18] LABS: Absolute Neutrophil Count 14.97 10^3/uL (1.2-6.7)
[2024-08-04 07:33] LABS: ALT 12 U/L (14-59); AST 9 U/L (15-37); Albumin 2.7 g/dL (3.4-5.0); Alkaline Phosphatase 127 U/L (46-116); Anion Gap 7.8 mmol/L (3-11); BUN 10 mg/dL (7-18); Bilirubin, Total 0.41 mg/dL (0.2-1.0); CO2 28.2 mmol/L (21.0-32.0); CREATININE 0.7 mg/dL (0.55-1.02); Calcium 9.5 mg/dL (8.5-10.1); Chloride 99 mmol/L (98-107); Glucose 265 mg/dL (74-106); Magnesium 1.6 mg/dL (1.8-2.4); Potassium 3.8 mmol/L (3.5-5.1); Sodium 135 mmol/L (136-145); Total Protein 7.3 g/dL (6.4-8.2)
== END 2024-08-04 04:36 | disposition home or self-care (01) ==
LOC: LBO 04:35
PROVIDERS: PCP Nurse Practitioner Family; Visit Provider Nurse Practitioner
DX: C52 Malignant neoplasm of vagina (principal)
CPT/HCPCS: 36415; 80053; 83735; 85025

== ENCOUNTER 2024-08-10 03:01 | Outpatient (CLI) | payer MEDICARE, OTHER, SELFPAY ==
[2024-08-10 12:05] LABS: Absolute Basophil Count 0.14 10^3/uL (0.0-0.2); Absolute Eosinophil Count 0.32 10^3/uL (0.0-0.7); Absolute Lymphocyte Count 0.81 10^3/uL (1.2-3.4); Absolute Monocyte Count 1.03 10^3/uL (0.1-0.8); Absolute Neutrophil Count 15.08 10^3/uL (1.2-6.7); Basophils % 0.8 %; Eosinophils % 1.8 %; HCT 38.2 % (36.0-46.0); Immature Grans % 1.7 %; Lymphocytes % 4.6 %; MCV 88 fL (80-95); MPV 9.7 fL (8.0-11.0); Monocytes % 5.8 %; Neutrophils % 85.3 %; Platelet Count 302 10^3/uL (130-400); RBC 4.33 10^6/uL (3.93-5.22); RDW 11.6 % (11.7-14.6); RDW-SD 37.3 fL; WBC 17.68 10^3/uL (4.4-10.8)
[2024-08-10 12:20] LABS: ALT 13 U/L (14-59); AST 10 U/L (15-37); Albumin 2.5 g/dL (3.4-5.0); Alkaline Phosphatase 134 U/L (46-116); Anion Gap 8.4 mmol/L (3-11); BUN 9 mg/dL (7-18); CO2 27.6 mmol/L (21.0-32.0); CREATININE 0.6 mg/dL (0.55-1.02); Chloride 95 mmol/L (98-107); Estimated GFR 94.13 (mL/min/1.73m2); Glucose 248 mg/dL (74-106); Magnesium 1.6 mg/dL (1.8-2.4); Potassium 3.5 mmol/L (3.5-5.1); Sodium 131 mmol/L (136-145); Total Protein 6.8 g/dL (6.4-8.2)
== END 2024-08-10 03:02 | disposition home or self-care (01) ==
LOC: LBO 03:01
PROVIDERS: PCP Nurse Practitioner Family; Visit Provider Nurse Practitioner
DX: C52 Malignant neoplasm of vagina (principal)
CPT/HCPCS: 36415; 80053; 83735; 85025

== ENCOUNTER 2024-08-18 07:38 | Outpatient (CLI) | payer MEDICARE, OTHER, SELFPAY ==
[2024-08-18 07:49] LABS: Abs Immature Grans 0.07 10^3/uL (0.0-0.06); Absolute Basophil Count 0.04 10^3/uL (0.0-0.2); Absolute Eosinophil Count 0.14 10^3/uL (0.0-0.7); Absolute Lymphocyte Count 0.23 10^3/uL (1.2-3.4); Absolute Monocyte Count 0.68 10^3/uL (0.1-0.8); Absolute Neutrophil Count 6.98 10^3/uL (1.2-6.7); Basophils % 0.5 %; Eosinophils % 1.7 %; HCT 36.3 % (36.0-46.0); HGB 11.9 g/dL (11.2-15.7); Immature Grans % 0.9 %; Lymphocytes % 2.8 %; MCH 29.5 pg (27.0-33.0); MCHC 32.8 % (32.0-36.0); MCV 90 fL (80-95); MPV 9.5 fL (8.0-11.0); Monocytes % 8.4 %; Neutrophils % 85.7 %; Platelet Count 193 10^3/uL (130-400); RBC 4.04 10^6/uL (3.93-5.22); RDW 11.9 % (11.7-14.6); RDW-SD 37.9 fL; WBC 8.14 10^3/uL (4.4-10.8)
[2024-08-18 08:09] LABS: ALT 31 U/L (14-59); AST 22 U/L (15-37); Albumin 2.4 g/dL (3.4-5.0); Alkaline Phosphatase 103 U/L (46-116); Anion Gap 8.5 mmol/L (3-11); BUN 10 mg/dL (7-18); Bilirubin, Total 0.38 mg/dL (0.2-1.0); CO2 29.5 mmol/L (21.0-32.0); CREATININE 0.7 mg/dL (0.55-1.02); Calcium 8.3 mg/dL (8.5-10.1); Chloride 98 mmol/L (98-107); Glucose 380 mg/dL (74-106); Magnesium 1.3 mg/dL (1.8-2.4); Potassium 3.8 mmol/L (3.5-5.1); Sodium 136 mmol/L (136-145); Total Protein 6.4 g/dL (6.4-8.2)
== END 2024-08-18 07:39 | disposition home or self-care (01) ==
LOC: LBO 07:42
PROVIDERS: PCP Nurse Practitioner Family; Visit Provider Nurse Practitioner
DX: C52 Malignant neoplasm of vagina (principal)
CPT/HCPCS: 36415; 80053; 83735; 85025

== ENCOUNTER 2024-08-25 02:35 | Outpatient (CLI) | payer MEDICARE, OTHER, SELFPAY ==
[2024-08-25 08:32] LABS: ALT 27 U/L (14-59); AST 18 U/L (15-37); Albumin 2.5 g/dL (3.4-5.0); Alkaline Phosphatase 98 U/L (46-116); BUN 11 mg/dL (7-18); CREATININE 0.8 mg/dL (0.55-1.02); Calcium 8.5 mg/dL (8.5-10.1); Chloride 100 mmol/L (98-107); Estimated GFR 77.27 (mL/min/1.73m2); Glucose 313 mg/dL (74-106); Magnesium 1.3 mg/dL (1.8-2.4); Potassium 3.9 mmol/L (3.5-5.1); Sodium 139 mmol/L (136-145); Total Protein 6.5 g/dL (6.4-8.2)
[2024-08-25 08:43] LABS: Abs Immature Grans 0.04 10^3/uL (0.0-0.06); Absolute Basophil Count 0.05 10^3/uL (0.0-0.2); Absolute Eosinophil Count 0.15 10^3/uL (0.0-0.7); Absolute Lymphocyte Count 0.26 10^3/uL (1.2-3.4); Absolute Neutrophil Count 3.66 10^3/uL (1.2-6.7); Basophils % 1.1 %; Eosinophils % 3.2 %; HCT 32.9 % (36.0-46.0); HGB 11.2 g/dL (11.2-15.7); Immature Grans % 0.9 %; Lymphocytes % 5.6 %; MCH 29.9 pg (27.0-33.0); MCV 88 fL (80-95); MPV 9.4 fL (8.0-11.0); Monocytes % 10.7 %; Neutrophils % 78.5 %; Platelet Count 185 10^3/uL (130-400); RBC 3.75 10^6/uL (3.93-5.22); RDW 12.2 % (11.7-14.6); RDW-SD 38.8 fL; WBC 4.66 10^3/uL (4.4-10.8)
== END 2024-08-25 02:36 | disposition home or self-care (01) ==
LOC: LBO 02:35
PROVIDERS: PCP Nurse Practitioner Family; Visit Provider Nurse Practitioner
DX: C52 Malignant neoplasm of vagina (principal)
CPT/HCPCS: 36415; 80053; 83735; 85025

== ENCOUNTER 2024-09-01 01:58 | Outpatient (CLI) | payer MEDICARE, OTHER, SELFPAY ==
[2024-09-01 08:33] LABS: Abs Immature Grans 0.03 10^3/uL (0.0-0.06); Absolute Basophil Count 0.02 10^3/uL (0.0-0.2); Absolute Eosinophil Count 0.03 10^3/uL (0.0-0.7); Absolute Lymphocyte Count 0.15 10^3/uL (1.2-3.4); Absolute Monocyte Count 0.29 10^3/uL (0.1-0.8); Absolute Neutrophil Count 2.17 10^3/uL (1.2-6.7); Basophils % 0.7 %; Eosinophils % 1.1 %; HCT 29.4 % (36.0-46.0); Immature Grans % 1.1 %; Lymphocytes % 5.6 %; MCH 29.6 pg (27.0-33.0); MCV 87 fL (80-95); Monocytes % 10.8 %; Neutrophils % 80.7 %; Platelet Count 146 10^3/uL (130-400); RBC 3.38 10^6/uL (3.93-5.22); RDW-SD 39.2 fL; WBC 2.69 10^3/uL (4.4-10.8)
[2024-09-01 09:00] LABS: ALT 21 U/L (14-59); AST 13 U/L (15-37); Albumin 2.7 g/dL (3.4-5.0); Alkaline Phosphatase 98 U/L (46-116); BUN 13 mg/dL (7-18); Bilirubin, Total 0.47 mg/dL (0.2-1.0); CREATININE 0.7 mg/dL (0.55-1.02); Calcium 8.4 mg/dL (8.5-10.1); Chloride 99 mmol/L (98-107); Glucose 271 mg/dL (74-106); Magnesium 0.9 mg/dL (1.8-2.4); Potassium 3.5 mmol/L (3.5-5.1); Sodium 136 mmol/L (136-145); Total Protein 6.8 g/dL (6.4-8.2)
== END 2024-09-01 01:59 | disposition home or self-care (01) ==
LOC: LBO 01:58
PROVIDERS: PCP Nurse Practitioner Family; Visit Provider Nurse Practitioner
DX: C52 Malignant neoplasm of vagina (principal)
CPT/HCPCS: 36415; 80053; 83735; 85025

== ENCOUNTER 2024-09-08 02:55 | Outpatient (CLI) | payer MEDICARE, OTHER, SELFPAY ==
[2024-09-08 08:31] LABS: Abs Immature Grans 0.04 10^3/uL (0.0-0.06); Absolute Basophil Count 0.02 10^3/uL (0.0-0.2); Absolute Eosinophil Count 0.02 10^3/uL (0.0-0.7); Absolute Monocyte Count 0.24 10^3/uL (0.1-0.8); Absolute Neutrophil Count 2.02 10^3/uL (1.2-6.7); Basophils % 0.8 %; Eosinophils % 0.8 %; HCT 25.4 % (36.0-46.0); HGB 8.6 g/dL (11.2-15.7); Immature Grans % 1.6 %; Lymphocytes % 4.1 %; MCH 30.2 pg (27.0-33.0); MCHC 33.9 % (32.0-36.0); MCV 89 fL (80-95); MPV 8.7 fL (8.0-11.0); Monocytes % 9.8 %; Neutrophils % 82.9 %; Platelet Count 188 10^3/uL (130-400); RBC 2.85 10^6/uL (3.93-5.22); RDW-SD 41.2 fL; WBC 2.44 10^3/uL (4.4-10.8)
[2024-09-08 08:49] LABS: ALT 22 U/L (14-59); AST 18 U/L (15-37); Albumin 2.6 g/dL (3.4-5.0); Alkaline Phosphatase 92 U/L (46-116); Anion Gap 10.5 mmol/L (3-11); BUN 10 mg/dL (7-18); Bilirubin, Total 0.51 mg/dL (0.2-1.0); CO2 28.5 mmol/L (21.0-32.0); CREATININE 0.6 mg/dL (0.55-1.02); Calcium 8.3 mg/dL (8.5-10.1); Chloride 98 mmol/L (98-107); Estimated GFR 94.13 (mL/min/1.73m2); Glucose 244 mg/dL (74-106); Magnesium 1.1 mg/dL (1.8-2.4); Potassium 3.3 mmol/L (3.5-5.1); Sodium 137 mmol/L (136-145); Total Protein 6.4 g/dL (6.4-8.2)
== END 2024-09-08 02:56 | disposition home or self-care (01) ==
LOC: LBO 02:55
PROVIDERS: PCP Nurse Practitioner Family; Visit Provider Nurse Practitioner
DX: C52 Malignant neoplasm of vagina (principal)
CPT/HCPCS: 36415; 80053; 83735; 85025

== ENCOUNTER 2024-11-19 08:56 | Inpatient (IN) | payer MEDICARE, SELFPAY ==
[2024-11-19] VITALS (63 sets, daily range): BP systolic 126–142; BP diastolic 40–62; PULSE 80–99; RESP 14–16; TEMP 37.3; O2SAT 89–98
[2024-11-19] MEDS: Ondansetron 4 MG/2 ML VIAL IVP (09:20)
[2024-11-19] MEDS: Lactated Ringers 1,000 ML 1000 ML IV (09:22)
--- NOTE | 2024-11-19 09:49 | W.ED.GENAD ---
Discharge Plan Disposition Patient Disposition: Admit to [facility] Condition: Stable Discharge Details Chief Complaint: Nausea/Vomit/Diar Clinical Impression: Hypercalcemia, Acute UTI Primary Care Provider: Giuliana Gonzalez ED Provider: Bruno Flores Home Meds and New Rx's Prescriptions: No Action levothyroxine 25 mcg capsule 25 mcg PO DAILY atorvastatin 10 mg tablet 10 mg PO DAILY Aquaphor Baby Healing 41 % ointment 1 applic topical DAILY PRN trazodone 50 mg tablet 50 mg PO QHS Rx Instructions: May take additional 1/2 to 1 tab PRN insomnia amlodipine 10 mg tablet 10 mg PO DAILY desonide 0.05 % ointment 1 applic topical BID silver sulfadiazine [Silvadene] 1 % cream 1 applic topical DAILY PRN prochlorperazine maleate 10 mg tablet 10 mg PO Q6H PRN olanzapine 5 mg tablet 5 mg PO QHS loperamide 2 mg capsule 2 mg PO Q4H PRN Rx Instructions: administer after each loose stool until symptoms controlled; do not exceed 8 mg per 24 hrs aspirin [Adult Aspirin Regimen] 81 mg tablet,delayed release (DR/EC) 81 mg PO DAILY magnesium oxide 400 mg (241.3 mg magnesium) tablet 400 mg PO BID Patient Comments: TAKE ONE TABLET BY MOUTH TWICE A DAY HPI General Date/Time Provider Initiated Documentation: 11/19/24 09:49. 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 Patient states that for the last few weeks she has not been eating or drinking much at all, she did have an episode of vomiting today. She has been having occasional loose stools. She feels notably weak for any activity. She does not feel like she can stand. She has been peeing less than normal. She denies any fevers. She denies any chest pain. She admits to mild pelvic pain. No blood vaginally. No other complaints at this time. Related Data Home Medications ?Medication ?Instructions ?Recorded ?Confirmed atorvastatin 10 mg tablet 10 mg PO DAILY 03/11/19 11/19/24 levothyroxine 25 mcg capsule 25 mcg PO DAILY 03/11/19 11/19/24 amlodipine 10 mg tablet 10 mg PO DAILY 11/11/24 11/19/24 desonide 0.05 % topical ointment 1 applic topical BID 11/11/24 11/19/24 loperamide 2 mg capsule 2 mg PO Q4H PRN 11/11/24 11/19/24 olanzapine 5 mg tablet 5 mg PO QHS 11/11/24 11/19/24 prochlorperazine maleate 10 mg 10 mg PO Q6H PRN 11/11/24 11/19/24 tablet silver sulfadiazine 1 % topical 1 applic topical DAILY PRN 11/11/24 11/19/24 cream (Silvadene) trazodone 50 mg tablet 50 mg PO QHS 11/11/24 11/19/24 white petrolatum 41 % topical 1 applic topical DAILY PRN 11/11/24 11/19/24 ointment (Aquaphor Baby Healing) aspirin 81 mg tablet,delayed 81 mg PO DAILY 11/19/24 11/19/24 release (Adult Aspirin Regimen) magnesium oxide 400 mg (241.3 mg 400 mg PO BID 11/19/24 11/19/24 magnesium) tablet Allergies Allergy/AdvReac Type Severity Reaction Status Date / Time Iodinated Contrast Media AdvReac Intermediate Skin Rash Unverified 11/19/24 12:16 DUST Allergy Unknown Other (See Uncoded 11/19/24 12:16 Comment) General Stated Complaint: Nausea/Vomit/Diar LOURDES: 3 Exam Narrative Exam Narrative: 1.Const: Thin cachectic appearing female 2.Eyes: PERRL, no conjunctival injection, and symmetrical lids. 3.ENT: Atraumatic external nose and ears. dry DryMM. Neck: Symmetric, trachea midline, No thyromegaly. Small enlargement noted on upper gum. 4.CVS: +S1/S2, Peripheral pulses 2+ and equal in all extremities. Brisk capillary refill in all extremities. 5.RESP: Unlabored respiratory effort. Clear to auscultation bilaterally. No wheezes rales or rhonchi 6.GI: Soft, nondistended, no guarding or rebound. Mild achiness in the pelvic region. No active bleeding from the vagina. Stools noted around the vaginal anal area. 7.MSK: Normocephalic/Atraumatic, Extremities w/o deformity or ttp No cyanosis or clubbing, Normal movement of all extremities 8.Skin: Warm, Dry. No rashes or lesions. 9.Neuro: belt fixer II-XII grossly intact. Sensation grossly intact, no focal neurologic deficits. 10.Psych: (AAO) x3. Somewhat diminished mood and affect. Course Vital Signs Vital signs: Vital Signs Temperature 37.3 C 11/19/24 08:49 Pulse 96 H 11/19/24 08:49 Respiratory Rate 14 11/19/24 08:49 Blood Pressure 126/62 11/19/24 08:49 Pulse Oximetry 96 11/19/24 08:49 Temperature 37.3 C 11/19/24 08:49 Temperature Source Tympanic 11/19/24 08:49 Pulse 96 H 11/19/24 08:49 Respiratory Rate 14 11/19/24 08:49 Blood Pressure 126/62 11/19/24 08:49 Blood Pressure Position Supine 11/19/24 08:49 Pulse Oximetry 96 11/19/24 08:49 Oxygen Delivery Method Room Air 11/19/24 08:49 Oxygen Flow Rate 0 11/19/24 08:49 Pain Level 0 11/19/24 08:49 Lab/Test Results Lab/Test Results: Laboratory Tests Range/Units 11/19/24 09:24 WBC Cancelled RBC Cancelled Hgb Cancelled Hct Cancelled MCV Cancelled MCH Cancelled MCHC Cancelled RDW Cancelled Plt Count Cancelled MPV Cancelled Immature Gran % Cancelled Neutrophils % Cancelled Band Neutrophils % Cancelled Lymphocytes % Cancelled Atypical Lymphs % Cancelled Monocytes % Cancelled Eosinophils % Cancelled Basophils % Cancelled Metamyelocytes % Cancelled Myelocytes % Cancelled Promyelocytes % Cancelled Other Cells % Cancelled Nucleated RBC % Cancelled Absolute Neutrophils Cancelled Absolute Lymphocytes Cancelled Absolute Monocytes Cancelled Absolute Eosinophils Cancelled Absolute Basophils Cancelled RBC Morphology Cancelled Polychromasia Cancelled Hypochromasia Cancelled Poikilocytosis Cancelled Basophilic Stippling Cancelled Anisocytosis Cancelled Microcytosis Cancelled Macrocytosis Cancelled Spherocytes Cancelled Tear Drop Cells Cancelled Ovalocytes Cancelled Stomatocytes Cancelled [place] Bodies Cancelled Moe Cells/Echinocytes Cancelled Acanthocytes (Spur) Cancelled Schistocytes Cancelled Sodium Cancelled Potassium Cancelled Chloride Cancelled Carbon Dioxide Cancelled Anion Gap Cancelled BUN Cancelled Creatinine Cancelled Est GFR (CKD-EPI 2020) Cancelled Glucose Cancelled Calcium Cancelled Total Bilirubin Cancelled AST Cancelled ALT Cancelled Alkaline Phosphatase Cancelled Total Protein Cancelled Albumin Cancelled Lipase Cancelled Medical Decision Making 69-year-old female with a past medical history of non-Hodgkin's lymphoma, tobacco use although she claims she quit 2 weeks ago, who presents with 1 month of chest tightness, shortness of breath, cough. Patient states that symptoms have gradually been getting worse. Cough is productive with yellow sputum. Upon evaluation here in the patient arrived her O2 saturations were in the 70s. She denies any normal oxygen use. She denies any hemoptysis. She denies any vomiting or diarrhea. No crushing or tearing sensation in her chest. Family history is positive for cardiac disease. No other complaints at this time. Exam demonstrates a cachectic appearing female, dry mucous membranes, slight halitosis like breath likely from dehydration, atypical enlargement of the upper gum, mild lower pelvic tenderness. Differential is broad but includes electrolyte abnormality, dehydration, infection particularly UTI secondary to her vaginal enteric fistula. Will rehydrate, evaluate for these etiologies, get CT imaging for further differentiation of internal abdominal infection, monitor closely and reassess. 5:[address] imaging shows evidence of vaginal mass with invasion into the rectum which is inseparable. There is evidence of extensive liver and pulmonary metastases. I discussed this with the family, and this is a new finding and understanding for them. Patient was supposed to get CT imaging earlier at [facility] but has not been able to. She was scheduled to get 1 tomorrow but this will replace it. They were unaware of the metastatic component, hand very worried about this. I had a long discussion with the patient about the concerns for this. In addition to this, I did reach out to Dr. Dickens of [facility]. She after reviewing the case feels that this is more of a palliative scenario, and the patient should be medically managed for any current etiologies. She does not see indication for an emergent surgical intervention at this time, but does recommend outpatient oncologic follow-up for further discussion of palliative options. Laboratory workup shows white count of 26, notable left shift but no bands. Electrolytes demonstrate an elevated calcium at 12.7 which I suspect is a major cause of her current fatigue weakness and symptomatology. Patient had received 2 L of IV fluids, and repeat calcium is down to 12.1, we will hold off on any additional IV calcium reversal agents. Patient's troponins/serial troponins are stable. Urinalysis shows notable UTI with greater than 50 WBCs. COVID flu and RSV negative. I do feel that the patient would benefit from continued hydration, continued correction of her calcium, and treatment of her UTI. We did start the patient on cefepime for the UTI with concern for enteric components. Discussed all of this with the family, and they understand. Discussed potential further discussions of palliative care and hospice care, and family understands. Patient made it unequivocally clear that she is DNR/DNI, discussed the case with the hospitalist Dr. Martinez, he agrees with assessment and plan. Patient will be admitted for continued medical management and comfort. I have extensively reviewed the treatment plan with the patient. I have addressed all patient concerns at this time. I have also discussed the plan with the admitting physician and they agree with the current assessment and plan and have agreed to assume responsibility for the patient. All parties demonstrate verbal understanding and agreement with our assessment and plan at this time. The documentation in this chart was dictated using [employer] dictation software. Please excuse any dictation errors. FINDINGS: CHEST: Tracheobronchial tree: Patent. Pulmonary parenchyma: No consolidation. 3 centimeter mass right upper lobe. l 14 millimeter mass superior segment right lower lobe. 17 millimeter mass right middle lobe. 13 millimeter mass posterior right lower lobe. Additional basilar mass measuring 2.7 cm. 14 millimeter mass in the lingula. Pleura: No effusion or pneumothorax. Mediastinum: Within normal limits. Aorta: Thoracic portion non-dilated. Heavily calcified. Pulmonary arteries: No visible emboli. Heart: Normal size no pericardial effusion. Bones: Unremarkable for age. No lytic or blastic lesions.No compression fractures. Soft tissues: Unremarkable. ABDOMEN and PELVIS: Liver: Normal density. Innumerable liver metastases. The largest is in the central right lobe measuring 6 cm. Gallbladder and biliary tract: No evidence of stones or wall thickening. No biliary dilatation. Pancreas: Normal density, no abnormal calcifications or inflammatory process. Spleen: Normal. Kidneys: Normal size, contour and axis. No radiodense stones. No obstructive uropathy. No suspicious masses seen. Adrenal glands: No masses seen. Aorta: Abdominal portion non-dilated. Lymph nodes: Within normal limits. Soft tissues: Unremarkable. Bladder: Unremarkable. Bowel: Abnormal wall thickening of the rectum and invasion of the cervical mass into the rectum which is inseparable from the mass. Sigmoid diverticulosis. Appendix normal. Peritoneal cavity: No ascites. No focal collection. No mesenteric inflammatory response. No free air. Bones: Unremarkable for age. No visible metastatic lesions. Reproductive organs: Large irregular mass centered at the vagina measuring roughly 6.4 cephalo caudad by 6 cm AP by 6.4 cm transverse. The mass invades into the rectum and extends into the surrounding fat. There is fluid in the endometrium versus endometrial thickening. IMPRESSION: The patient vaginal mass with invasion into the rectum which is inseparable from the vaginal mass. Significant extension into adjacent soft tissues. The bladder appears intact. No evidence of bowel obstruction. Extensive liver and pulmonary metastases. Quality:SDOH Health Related Social Needs: No Data to Display PFSH All Active Problems (Updated 11/19/24 @ 17:42 by Bruno Flores DO) Acute UTI (Acute) Hypercalcemia (Acute) Hypercalcemia of malignancy (Acute) Calcific tendinitis of left shoulder (Acute) Diverticulosis (Acute) Medical History (Updated 11/19/24 @ 17:42 by Bruno Flores DO) Hyperthyroidism Diabetes Hypomagnesemia Hyponatremia Hypokalemia Severe protein-calorie malnutrition Vaginal cancer HTN (hypertension) Hypothyroidism Exertional shortness of breath Left shoulder pain Left knee pain Family history of breast cancer Urge incontinence of urine Hyperlipidemia Type 2 diabetes mellitus Surgical History (Updated 11/11/24 @ 09:40 by Nena Turner RN) H/O tooth extraction Hx of biopsy Hx of joint replacement History of colonoscopy 05/08/19 Family History (Updated 11/11/24 @ 09:41 by Nena Turner RN) Other Breast cancer Cancer Social History (Updated 11/11/24 @ 09:40 by Nena Turner RN) Smoking/Tobacco Use Status: Former Tobacco Use Smoking risk assessment performed?: Yes Alcohol Intake: never Drug use: Never Household members: spouse Housing: house What is your relationship status?: Panel score (0-1 are the most socially isolated patients): 1 Do you feel safe at home: Yes Do you feel safe in your relationship?: Yes
[2024-11-19 09:51] LABS: Abs Immature Grans 0.34 10^3/uL (0.0-0.06); Absolute Basophil Count 0.08 10^3/uL (0.0-0.2); Absolute Lymphocyte Count 0.58 10^3/uL (1.2-3.4); Absolute Monocyte Count 1.13 10^3/uL (0.1-0.8); Absolute Neutrophil Count 24.15 10^3/uL (1.2-6.7); Basophils % 0.3 %; HCT 27.3 % (36.0-46.0); HGB 8.8 g/dL (11.2-15.7); Immature Grans % 1.3 %; Lymphocytes % 2.2 %; MCH 31.4 pg (27.0-33.0); MCHC 32.2 % (32.0-36.0); MCV 98 fL (80-95); MPV 9.4 fL (8.0-11.0); Monocytes % 4.3 %; Neutrophils % 91.9 %; Platelet Count 393 10^3/uL (130-400); RDW 13.9 % (11.7-14.6); RDW-SD 50.5 fL
[2024-11-19 10:09] LABS: COVID-19 PCR Negative (Negative); Influenza A PCR Negative (Negative); Influenza B PCR Negative (Negative); RSV PCR Negative (Negative)
[2024-11-19 10:10] LABS: Source Nasopharynx
[2024-11-19 10:12] LABS: Diff Comment Diff Reviewed; RBC Morphology Normal
[2024-11-19 10:13] LABS: WBC 26.28 10^3/uL (4.4-10.8)
[2024-11-19 10:23] LABS: ALT 12 U/L (14-59); AST 15 U/L (15-37); Albumin 1.7 g/dL (3.4-5.0); Alkaline Phosphatase 186 U/L (46-116); Anion Gap 4.5 mmol/L (3-11); BUN 16 mg/dL (7-18); Bilirubin, Total 0.39 mg/dL (0.2-1.0); CO2 32.5 mmol/L (21.0-32.0); CREATININE 0.4 mg/dL (0.55-1.02); Chloride 97 mmol/L (98-107); Estimated GFR 103.79 (mL/min/1.73m2); Glucose 171 mg/dL (74-106); Lipase 8 U/L (<78); Potassium 3.5 mmol/L (3.5-5.1); Sodium 134 mmol/L (136-145)
[2024-11-19 10:24] LABS: Calcium 12.7 mg/dL (8.5-10.1)
--- NOTE | 2024-11-19 10:30 | RT.EKG_ITS ---
APPROVED REPORT Exam: Resting ECG Reason for Exam: elevated calcium Patient Location: E HR:85 bpm ECG Measurements Heart Rate 85 AXIS SC 141 P 62 QRSd 77 QRS -30 QT 352 T 49 QTc 421 Conclusion Sinus rhythm...normal P axis, V-rate 60- 99 Ventricular premature complex...V complex w/ short R-R interval Left axis deviation...QRS axis (-30,-90) Anteroseptal infarct, age indeterminate...Q >35mS, T neg, V1-V2 I have reviewed and interpreted ECG and agree with software generated interpretation.
[2024-11-19] MEDS: Normal Saline 1,000 ML 1000 ML IV (10:48)
[2024-11-19 11:27] LABS: Troponin I 8 ng/L (<or=51)
[2024-11-19] MEDS: methylPREDNISolone SUCC 125 MG VIAL IVP (12:17)
[2024-11-19] MEDS: diphenhydrAMINE 50 MG/ML VIAL 25 MG IVP (12:17)
[2024-11-19 12:51] LABS: Troponin I 10 ng/L (<or=51)
[2024-11-19] MEDS: Normal Saline - Diluent 50 ML VIAL IJ (13:13)
[2024-11-19] MEDS: Omnipaque 350 MG/ML 100 ML BTL 75 ML IJ (13:20)
--- NOTE | 2024-11-19 13:28 | DI.CT_ITS ---
Exam(s) CT CHEST/ABD/PEL W EXAM: CT CHEST/ABD/PEL W CLINICAL HISTORY: hx of vaginal cancer, vomiting, generalized abd pa. TECHNIQUE: Imaging Protocol: Axial computed tomography images with coronal and sagittal reformatted images were created and reviewed. Computer aided detection (CAD) was utilized. CONTRAST MATERIAL: Intravenous: Omnipaque 350 Contrast volume:75 ml Oral: no COMPARISON: No exams were available for comparison FINDINGS: CHEST: Tracheobronchial tree: Patent. Pulmonary parenchyma: No consolidation. 3 centimeter mass right upper lobe. l 14 millimeter mass gruber perior segment right lower lobe. 17 millimeter mass right middle lobe. 13 millimeter mass posterior right lower lobe. Additional basilar mass measuring 2.7 cm. 14 millimeter mass in the lingula. Pleura: No effusion or pneumothorax. Mediastinum: Within normal limits. Aorta: Thoracic portion non-dilated. Heavily calcified. Pulmonary arteries: No visible emboli. Heart: Normal size no pericardial effusion. Bones: Unremarkable for age. No lytic or blastic lesions.No compression fractures. Soft tissues: Unremarkable. ABDOMEN and PELVIS: Liver: Normal density. Innumerable liver metastases. The largest is in the central right lobe measur ing 6 cm. Gallbladder and biliary tract: No evidence of stones or wall thickening. No biliary dilatation. Pancreas: Normal density, no abnormal calcifications or inflammatory process. Spleen: Normal. Kidneys: Normal size, contour and axis. No radiodense stones. No obstructive uropathy. No suspicious masses seen. Adrenal glands: No masses seen. Aorta: Abdominal portion non-dilated. Lymph nodes: Within normal limits. Soft tissues: Unremarkable. Bladder: Unremarkable. Bowel: Abnormal wall thickening of the rectum and invasion of the cervical mass into the rectum which is inseparable from the mass. Sigmoid diverticulosis. Appendix normal. Peritoneal cavity: No ascites. No focal collection. No mesenteric inflammatory response. No free ai r. Bones: Unremarkable for age. No visible metastatic lesions. Reproductive organs: Large irregular mass centered at the vagina measuring roughly 6.4 cephalo caudad by 6 cm AP by 6.4 cm transverse. The mass invades into the rectum and extends into the surrounding fat. There is fluid in the endometrium versus endometrial thickening. IMPRESSION: The patient vaginal mass with invasion into the rectum which is inseparable from the vaginal mass. S ignificant extension into adjacent soft tissues. The bladder appears intact. No evidence of bowel o bstruction. Extensive liver and pulmonary metastases. Findings called to Dr. Flores of the emergency department. RADIATION DOSE DELIVERED: 517.71mGy.cm Total DLP DATA REPOSITORY: All CT scans at this facility are submitted to the National Radiology Data Registry (NRDR) Dose Index Registry (DIR) with the [employer] (ACR). RADIATION OPTIMIZATION: All CT scans at this facility use at least one of these dose optimization te chniques: automated exposure control; mA and/or kV adjustment per patient size (includes targeted exa ms where dose is matched to clinical indication); or iterative reconstruction.
[2024-11-19 14:44] LABS: Anion Gap 7.2 mmol/L (3-11); BUN 13 mg/dL (7-18); CO2 30.8 mmol/L (21.0-32.0); CREATININE 0.5 mg/dL (0.55-1.02); Chloride 99 mmol/L (98-107); Estimated GFR 98.36 (mL/min/1.73m2); Glucose 172 mg/dL (74-106); Potassium 3.6 mmol/L (3.5-5.1); Sodium 137 mmol/L (136-145)
[2024-11-19 14:46] LABS: Calcium 12.1 mg/dL (8.5-10.1)
[2024-11-19 14:54] LABS: Bilirubin Negative (Negative); Blood Small (Negative); Clarity Sl Cloudy (Clear); Glucose Negative (Negative); Ketones 40 mg/dL (Negative); Leukocyte Esterase Large (Negative); Nitrite Negative (Negative); Specific Gravity 1.025 (1.005-1.025); Urobilinogen 0.2 mg/dL (Up to 0.2)
[2024-11-19 15:07] LABS: Bacteria Many HPF (Negative); Crystals Many Amorphous HPF (Negative); Epithelial Cells Few HPF (Negative); RBC 20-50 HPF (0-2); WBC >50 HPF (0-5)
[2024-11-19 15:08] LABS: C & S Indicated? Yes; Casts 0-2 Hyaline LPF (Negative); Mucus Trace (Negative)
[2024-11-19] MEDS: CEFEPIME 2 GM in Normal Saline 100 ML IVPB (15:41)
[2024-11-19 15:58] LABS: Troponin I 10 ng/L (<or=51)
[2024-11-19] MEDS: MORPHine 4 MG/ML SYR IVP ×2 (16:14→23:49)
--- NOTE | 2024-11-19 17:13 | W.PM.HP.N ---
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 ED physician did d/w [facility] [place] and there was nothing they could over. did not feel any of this was surgical - i did have long conversation with patient, she now understands that she is terminal - will ask palliative care to come and d/w patient and as i believe she will need hospice care on discharge - i did also discuss code status and she would like to be DNR/DNI (3) HTN (hypertension): Assessment and plan: - hold amlodpine for now (4) Hypothyroidism: Assessment and plan: - continue levothyroxine 25mcg daily (5) Hyperlipidemia: Assessment and plan: - will hold atorvastatin for now History of Present Illness History of Present Illness Chief Complaint: weakness Narrative: This is a 74 yo female with pmhx vaginal CA s/p chemo/XRT at [facility] [place] that presents todat c/o progressive generalized weakness. Patient is pleasant but a limited historian. Per patient, she was getting treatment at [facility] and thinks she was told that they got all the cancer. However, over the past several weeks she has noticed that she has been getting weaker. Difficulty walking long distances. Poor PO intake with worsening nausea. Also tells me that having a BM has been getting more painful. Today she was not able to ambulate at all which prompted her to call EMS and come to the hospital. 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 In addition, serum Ca was 12.7, corrects to 13.9 with albumin. Patient is now being admitted for treatment of this. Review of Systems Constitutional Constitutional: Denies chills, Reports lethargy, Reports poor appetite, Denies snoring, Reports weakness and Reports weight loss Cardiovascular Cardiovascular: Denies chest pain, Denies leg edema, Denies lightheadedness and Denies dyspnea Respiratory Respiratory: Denies cough, Denies dyspnea, Denies snoring and Denies wheezing Gastrointestinal Gastrointestinal: Denies melena, Denies hematochezia, Reports change in bowel habits, Reports cramping, Denies dyspepsia, Denies heartburn, Denies fecal incontinence, Denies diarrhea, Denies loose stools, Reports nausea and Denies vomiting Genitourinary Genitourinary: Reports system reviewed and no additional complaints, except as documented Musculoskeletal Musculoskeletal: Reports system reviewed and no additional complaints, except as documented Neurologic Neurologic: Reports system reviewed and no additional complaints, except as documented and Reports weakness Endocrine Endocrine: Reports system reviewed and no additional complaints, except as documented Hematologic/Lymphatic Hematologic/Lymphatic: Reports system reviewed and no additional complaints, except as documented Allergic/Immunologic Allergic/Immunologic: Denies wheezing PFSH All Active Problems (Updated 11/19/24 @ 17:42 by Bruno Flores DO) Acute UTI (Acute) Hypercalcemia (Acute) Hypercalcemia of malignancy (Acute) Calcific tendinitis of left shoulder (Acute) Diverticulosis (Acute) Medical History (Updated 11/19/24 @ 17:42 by Bruno Flores DO) Hyperthyroidism Diabetes Hypomagnesemia Hyponatremia Hypokalemia Severe protein-calorie malnutrition Vaginal cancer HTN (hypertension) Hypothyroidism Exertional shortness of breath Left shoulder pain Left knee pain Family history of breast cancer Urge incontinence of urine Hyperlipidemia Type 2 diabetes mellitus Surgical History (Updated 11/11/24 @ 09:40 by Nena Turner RN) H/O tooth extraction Hx of biopsy Hx of joint replacement History of colonoscopy 05/08/19 Family History (Updated 11/11/24 @ 09:41 by Nena Turner RN) Other Breast cancer Cancer Social History (Updated 11/11/24 @ 09:40 by Nena Turner RN) Smoking/Tobacco Use Status: Former Tobacco Use Smoking risk assessment performed?: Yes Alcohol Intake: never Drug use: Never Household members: spouse Housing: house What is your relationship status?: Panel score (0-1 are the most socially isolated patients): 1 Do you feel safe at home: Yes Do you feel safe in your relationship?: Yes Meds Allergies and Home Medications Allergies Allergy/AdvReac Type Severity Reaction Status Date / Time Iodinated Contrast Media AdvReac Intermediate Skin Rash Unverified 11/19/24 12:16 DUST Allergy Unknown Other (See Uncoded 11/19/24 12:16 Comment) Home Medications ?Medication ?Instructions ?Recorded ?Confirmed ?Type atorvastatin 10 mg tablet 10 mg PO DAILY 03/11/19 11/19/24 History levothyroxine 25 mcg capsule 25 mcg PO DAILY 03/11/19 11/19/24 History amlodipine 10 mg tablet 10 mg PO DAILY 11/11/24 11/19/24 History desonide 0.05 % topical ointment 1 applic topical BID 11/11/24 11/19/24 History loperamide 2 mg capsule 2 mg PO Q4H PRN 11/11/24 11/19/24 History olanzapine 5 mg tablet 5 mg PO QHS 11/11/24 11/19/24 History prochlorperazine maleate 10 mg 10 mg PO Q6H PRN 11/11/24 11/19/24 History tablet silver sulfadiazine 1 % topical 1 applic topical DAILY PRN 11/11/24 11/19/24 History cream (Silvadene) trazodone 50 mg tablet 50 mg PO QHS 11/11/24 11/19/24 History white petrolatum 41 % topical 1 applic topical DAILY PRN 11/11/24 11/19/24 History ointment (Aquaphor Baby Healing) aspirin 81 mg tablet,delayed 81 mg PO DAILY 11/19/24 11/19/24 History release (Adult Aspirin Regimen) magnesium oxide 400 mg (241.3 mg 400 mg PO BID 11/19/24 11/19/24 History magnesium) tablet Exam Const General: cooperative, comfortable and no acute distress Nutritional Appearance: cachectic Orientation: alert, awake and oriented x3 Chest Chest: normal inspection of the chest Resp Effort & Inspection: normal respiratory effort Auscultation: clear to auscultation bilaterally, no rales, no rhonchi and no wheezes GI Inspection: normal to inspection Palpation: soft Auscultation: hypoactive bowel sounds Skin General skin exam: no rashes or lesions noted Extrem General: no pedal edema Results Imaging CT scan - pelvis: report reviewed Labs 11/19/24 09:44 11/19/24 14:10 Labs: Laboratory Results - last 24 hr 11/19/24 11/19/24 11/19/24 09:24 09:44 09:49 WBC Cancelled 26.28 H* RBC Cancelled 2.80 L Hgb Cancelled 8.8 L Hct Cancelled 27.3 L MCV Cancelled 98 H MCH Cancelled 31.4 MCHC Cancelled 32.2 RDW Cancelled 13.9 Plt Count Cancelled 393 MPV Cancelled 9.4 Immature Gran % Cancelled 1.3 Neutrophils % Cancelled 91.9 Band Neutrophils % Cancelled Lymphocytes % Cancelled 2.2 Atypical Lymphs % Cancelled Monocytes % Cancelled 4.3 Eosinophils % Cancelled 0.0 Basophils % Cancelled 0.3 Metamyelocytes % Cancelled Myelocytes % Cancelled Promyelocytes % Cancelled Other Cells % Cancelled Nucleated RBC % Cancelled 0.0 Absolute Neutrophils Cancelled 24.15 H Absolute Lymphocytes Cancelled 0.58 L Absolute Monocytes Cancelled 1.13 H Absolute Eosinophils Cancelled 0.00 Absolute Basophils Cancelled 0.08 RBC Morphology Cancelled Normal Polychromasia Cancelled Hypochromasia Cancelled Poikilocytosis Cancelled Basophilic Stippling Cancelled Anisocytosis Cancelled Microcytosis Cancelled Macrocytosis Cancelled Spherocytes Cancelled Tear Drop Cells Cancelled Ovalocytes Cancelled Stomatocytes Cancelled [place] Bodies Cancelled Moe Cells/Echinocytes Cancelled Acanthocytes (Spur) Cancelled Schistocytes Cancelled Sodium Cancelled 134 L Potassium Cancelled 3.5 Chloride Cancelled 97 L Carbon Dioxide Cancelled 32.5 H Anion Gap Cancelled 4.5 BUN Cancelled 16 Creatinine Cancelled 0.4 L Est GFR (CKD-EPI 2020) Cancelled 103.79 Glucose Cancelled 171 H Calcium Cancelled 12.7 H* Total Bilirubin Cancelled 0.39 AST Cancelled 15 ALT Cancelled 12 L Alkaline Phosphatase Cancelled 186 H Troponin I 8 Total Protein Cancelled 6.0 L Albumin Cancelled 1.7 L Lipase Cancelled 8 Urine Color Urine Clarity Urine pH Ur Specific [place] Urine Protein Urine Ketones Urine Blood Urine Nitrite Urine Bilirubin Urine Urobilinogen Ur Leukocyte Esterase Urine RBC Urine WBC Ur Epithelial Cells Urine Crystals Urine Bacteria Urine Casts Urine Mucus Ur Culture Indicated? Urine Glucose COVID-19 Source Nasopharynx SARS-CoV-2 (PCR) Negative Influenza Type A (PCR) Negative Influenza Type B (PCR) Negative RSV (PCR) Negative 11/19/24 11/19/24 11/19/24 12:22 12:43 14:10 WBC RBC Hgb Hct MCV MCH MCHC RDW Plt Count MPV Immature Gran % Neutrophils % Band Neutrophils % Lymphocytes % Atypical Lymphs % Monocytes % Eosinophils % Basophils % Metamyelocytes % Myelocytes % Promyelocytes % Other Cells % Nucleated RBC % Absolute Neutrophils Absolute Lymphocytes Absolute Monocytes Absolute Eosinophils Absolute Basophils RBC Morphology Polychromasia Hypochromasia Poikilocytosis Basophilic Stippling Anisocytosis Microcytosis Macrocytosis Spherocytes Tear Drop Cells Ovalocytes Stomatocytes [place] Bodies [place] Cells/Echinocytes Acanthocytes (Spur) Schistocytes Sodium 137 Potassium 3.6 Chloride 99 Carbon Dioxide 30.8 Anion Gap 7.2 BUN 13 Creatinine 0.5 L Est GFR (CKD-EPI 2020) 98.36 Glucose 172 H Calcium 12.1 H* Total Bilirubin AST ALT Alkaline Phosphatase Troponin I 10 10 Total Protein Albumin Lipase Urine Color Yellow Urine Clarity Sl Cloudy Urine pH 6.0 Ur Specific [place] 1.025 Urine Protein 30 H Urine Ketones 40 H Urine Blood Small H Urine Nitrite Negative Urine Bilirubin Negative Urine Urobilinogen 0.2 Ur Leukocyte Esterase Large H Urine RBC 20-50 H Urine WBC >50 H Ur Epithelial Cells Few Urine Crystals Many Amorphous Urine Bacteria Many Urine Casts 0-2 Hyaline Urine Mucus Trace Ur Culture Indicated? Yes Urine Glucose Negative COVID-19 Source SARS-CoV-2 (PCR) Influenza Type A (PCR) Influenza Type B (PCR) RSV (PCR) Last Vital Signs Temp 37.3 C 11/19/24 08:49 Pulse 90 11/19/24 16:40 Resp 14 11/19/24 08:49 BP 137/59 L 11/19/24 16:00 Pulse Ox 93 11/19/24 16:40 Time Spent Time spent with Patient: <40 minutes Time was spent: preparing to see the patient(eg.review tests), ordering medications,tests, procedures, indepentently interpreting results, counseling the patient and care coordination
[2024-11-19] MEDS: Magnesium Oxide 400 MG TAB PO (20:03)
[2024-11-19] MEDS: traZODone 50 MG TAB PO (20:03)
[2024-11-19] MEDS: OLANZapine 5 MG TAB PO (20:03)
[2024-11-19] MEDS: Normal Saline 1,000 ML 100 ML IV (22:33)
[2024-11-19] MEDS: Acetaminophen 325 MG TAB 650 MG PO (22:58)
[2024-11-19] MEDS: Normal Saline Flush 10 ML SYR (23:48)
[2024-11-20 00:30] VITALS: BP 101/47; PULSE 68; RESP 16; TEMP 36.4; O2SAT 96
[2024-11-20] MEDS: Levothyroxine 25 MCG TAB PO (06:15)
[2024-11-20 07:39] LABS: Abs Immature Grans 0.33 10^3/uL (0.0-0.06); Absolute Basophil Count 0.07 10^3/uL (0.0-0.2); Absolute Neutrophil Count 21.12 10^3/uL (1.2-6.7); Basophils % 0.3 %; HCT 26.3 % (36.0-46.0); HGB 8.5 g/dL (11.2-15.7); Immature Grans % 1.5 %; Lymphocytes % 1.8 %; MCH 32.1 pg (27.0-33.0); MCHC 32.3 % (32.0-36.0); MCV 99 fL (80-95); MPV 9.9 fL (8.0-11.0); Monocytes % 2.2 %; Neutrophils % 94.2 %; Platelet Count 368 10^3/uL (130-400); RBC 2.65 10^6/uL (3.93-5.22); RDW 13.7 % (11.7-14.6); RDW-SD 50.1 fL; WBC 22.42 10^3/uL (4.4-10.8)
[2024-11-20 07:54] LABS: Absolute Monocyte Count 0.49 10^3/uL (0.1-0.8)
[2024-11-20 07:57] LABS: ALT 15 U/L (14-59); AST 14 U/L (15-37); Albumin 1.6 g/dL (3.4-5.0); Alkaline Phosphatase 163 U/L (46-116); Anion Gap 6.6 mmol/L (3-11); BUN 22 mg/dL (7-18); CO2 30.4 mmol/L (21.0-32.0); CREATININE 0.4 mg/dL (0.55-1.02); Chloride 103 mmol/L (98-107); Estimated GFR 103.79 (mL/min/1.73m2); Glucose 169 mg/dL (74-106); Magnesium 1.3 mg/dL (1.8-2.4); Potassium 3.6 mmol/L (3.5-5.1); Sodium 140 mmol/L (136-145); Total Protein 5.5 g/dL (6.4-8.2)
[2024-11-20 07:59] LABS: Calcium 12.3 mg/dL (8.5-10.1)
[2024-11-20 08:27] LABS: Diff Comment Diff Reviewed; RBC Morphology Normal
--- NOTE | 2024-11-20 08:35 | PDOC.CMIN ---
Date of service: 11/20/24 Time of Service: 08:35 Care Management Initial Assmt Initial Assessment Reason for Hospitalization: hypercalcemia secondary to metastatic cancer Functional Status/Living Situation Patient Presentation: Thais was lying in bed visiting with her family when CM met with her. Her , daughter and grandson were with her. Thais was admitted with hypercalcemia. Imaging done in the Ed indicated that she has widespread vaginal cancer with metastasis to the lungs, liver and, likely, mouth. She also has a rectovaginal fistula. Until yesterday, Thais believed that they got all the cancer. She had received chemotherapy and [place] at [facility] [place] [facility] [place] They had a Palliative Care consult with [facility]. As a result of that conversation, the decision was made to discharge home on hospice this weekend. Timing will be dependent on the delivery of the equipment. They will need a hospital bed and an over bed table which [facility] has ordered. A Fentanyl patch will be ordered for pain control. When CM met with Thais and her family, they had many questions and were understandably teary. Her grandson Zeus shared that it was important to him and the whole family that she be coherent and they be able to converse with her for as long as possible. He prefaced the statement by acknowledging that pain control was the first consideration. He asked about the varying effects of a Fentanyl patch vs a drip. Belem had explained the different modalities for pain control, and CM just reinforced the information. Town of Residence: [place] Resides with: Spouse ( Oliver) Significant Other/Family: [facility] Employment Status: Retired Instrumental Activities of Daily Living (ADLs): Requires support Medications Medication Management: No Issues/Barriers identified Advance Directives Advance Directives: Do you have an Advance Directive: Y 04/30/19 14:53 AD On File at [facility]: N 07/03/13 11:38 Date Asked 11/19/24 11/19/24 09:02 AD Date Reviewed COLST On File at [facility] COLST Date Scanned Code Status Resuscitation Status DNR/DNI Portal Pt does not currently have a portal and education provided: Yes Insurance Coverage/Financial Issues Insurance: Medicare [place] supplement Care Team Visit Care Team Role Provider Type Giuliana Gonzalez Primary Care Provider NURSE PRACTITIONER Bruno Flores, Emergency Provider [facility] STAFF PHYSICIAN Anselmo Curtis DO Admit Provider MD YOUNG STAFF PHYSICIAN Attending Provider Discharge Potential Discharge Needs: PCP F/U Appt and Other (hospice) Anticipated Barriers to Discharge: None Identified Patient/Family Education Needs: Review discharge instructions, discuss Ask Me Three Transportation: Private vehicle Plan: Anticipate Thais will be discharged home and admitted to hospice this weekend. She will follow up with the hospice team and her community supports and transport via EMS. CM will follow and continue to support discharge planning efforts. Social Determinants of Health Screening Will the Patient Participate in the Screening?: Declined to provide PFSH All Active Problems (Updated 11/20/24 @ 15:31 by Belem Parish NP) Advanced care planning/counseling discussion (Acute) Palliative care patient (Acute) Cancer-related pain (Acute) Acute UTI (Acute) Hypercalcemia (Acute) Hypercalcemia of malignancy (Acute) Calcific tendinitis of left shoulder (Acute) Diverticulosis (Acute) Medical History Hyperthyroidism Diabetes Hypomagnesemia Hyponatremia Hypokalemia Severe protein-calorie malnutrition Vaginal cancer HTN (hypertension) Hypothyroidism Exertional shortness of breath Left shoulder pain Left knee pain Family history of breast cancer Urge incontinence of urine Hyperlipidemia Type 2 diabetes mellitus Surgical History H/O tooth extraction Hx of biopsy Hx of joint replacement History of colonoscopy 05/08/19 Family History Other Breast cancer Cancer Social History Smoking/Tobacco Use Status: Former Tobacco Use Smoking risk assessment performed?: Yes Alcohol Intake: never Drug use: Never Household members: spouse Housing: house What is your relationship status?: Panel score (0-1 are the most socially isolated patients): 1 Do you feel safe at home: Yes Do you feel safe in your relationship?: Yes
[2024-11-20 08:36] VITALS: BP 137/65; PULSE 72; RESP 16; TEMP 36.5; O2SAT 96
[2024-11-20] MEDS: Normal Saline 1,000 ML 100 ML IV (08:44)
[2024-11-20] MEDS: Aspirin E.C. 81 MG TABEC PO (09:00)
[2024-11-20] MEDS: Magnesium Oxide 400 MG TAB PO ×2 (09:00→20:05)
[2024-11-20] MEDS: Enoxaparin 30 MG/0.3 ML SYR SC (09:00)
[2024-11-20] MEDS: MORPHine 4 MG/ML SYR IVP ×4 (10:54→18:45)
[2024-11-20 11:19] VITALS: BP 121/55; PULSE 78; RESP 16; TEMP 36.6; O2SAT 96
--- NOTE | 2024-11-20 11:31 | W.PALLCONSUL ---
Date of service: 11/20/24 Time of Service: 11:31 History of Present Illness Narrative: Thais was seen in her hospital room. Her , Oliver was present for the visit. Her daughter, Chiquita and grandson, Zeus joined as well. Thais presented to the ED yesterday due to nausea, vomiting and pain. CT revealed: vaginal mass with invasion into the rectum which is inseparable from the vaginal mass. Significant extension into adjacent soft tissues. The bladder appears intact. No evidence of bowel obstruction. Extensive liver and pulmonary metastases. She also has a lesion on her upper gum that appears to be malignant. It appeared over the last couple of weeks and is growing rapidly. She also has rectovaginal fistula. The metastatic nature of the cancer was unknown to her before she presented to the ED. She completed cancer treatment in 08/2024 and was under the impression that she was cancer free, pending PET scan. Over the last few weeks, she has become weaker and fatigued. Her appetite is decreased. She had nausea and vomiting that prompted her presentation to the ED. She has been spending most of her time in bed. She is having significant difficulty with mobility. She is experiencing abdominal pain. She has been getting PRN morphine while in the hospital. Discussed trial of low dose fentanyl patch and she is agreeable. Discussed hospice as an option. She understands that the cancer is not curable. She wants to go home and focus on comfort. She wants hospice. She feels she will need a hospital bed and a bedside table. Her daughter does not think she will be able to use the commode. She does not have the sensation of needing to move her bowels. She has a very supportive family that will help her . Her family has suffered significant loss. Her daughter in the recent past from cancer, she was only 48. She is clear she is a DNR/DNI. She needs a COLST. Contact information for family: Chiquita Thomas- [phone] Zeus Thomas - [phone] Oliver Graham [phone] Assessment and Plan Assessment and plan (1) Hypercalcemia of malignancy: Status: Acute Assessment and plan: On IV fluids and received Zometa. (2) Vaginal cancer: Assessment and plan: CT in the ED shows: vaginal mass with invasion into the rectum which is inseparable from the vaginal mass. Significant extension into adjacent soft tissues. The bladder appears intact. No evidence of bowel obstruction. Extensive liver and pulmonary metastases. She also has a new lesion to her upper gum, protruding out of her mouth. (3) Cancer-related pain: Status: Acute Assessment and plan: She is receiving IV MS while in the hospital. The morphine helps but she appeared uncomfortable by the end of the visit. Recommend fentanyl patch 12 mcg/hr in anticipation of going home on hospice. (4) HTN (hypertension): (5) Hypothyroidism: (6) Hyperlipidemia: (7) Acute UTI: Status: Acute Assessment and plan: On Abx. (8) Palliative care patient: Status: Acute (9) Advanced care planning/counseling discussion: Status: Acute Assessment and plan: It was a pleasure to meet with Leda and her family. This unfortunate 74-year-old female now has metastatic vaginal cancer that has spread to her lymph nodes, liver and lungs. She also has a suspicious lesion to her upper gum that is protruding from her mouth. She understands that this cancer is not curable. She appears to be declining quickly. She is weak and spending most of her time in bed. Her appetite is decreased. She came in with N/V, dehydration, UTI. She is noted to have hypercalcemia of malignancy. She is a DNR/DNI. She needs a COLST form. She wants to go home on hospice and focus on comfort and QOL. She has a loving and supportive family that will take care of her. Referral sent to hospice. Review of Systems Narrative: Per HPI. She is weak. She is having pain, morphine helps for a while. her appetite is decreased. She is eating very little. She denies n/v today. PFSH All Active Problems (Updated 11/20/24 @ 15:31 by Belem Parish NP) Advanced care planning/counseling discussion (Acute) Palliative care patient (Acute) Cancer-related pain (Acute) Acute UTI (Acute) Hypercalcemia (Acute) Hypercalcemia of malignancy (Acute) Calcific tendinitis of left shoulder (Acute) Diverticulosis (Acute) Medical History Hyperthyroidism Diabetes Hypomagnesemia Hyponatremia Hypokalemia Severe protein-calorie malnutrition Vaginal cancer HTN (hypertension) Hypothyroidism Exertional shortness of breath Left shoulder pain Left knee pain Family history of breast cancer Urge incontinence of urine Hyperlipidemia Type 2 diabetes mellitus Surgical History H/O tooth extraction Hx of biopsy Hx of joint replacement History of colonoscopy 05/08/19 Family History Other Breast cancer Cancer Social History Smoking/Tobacco Use Status: Former Tobacco Use Smoking risk assessment performed?: Yes Alcohol Intake: never Drug use: Never Household members: spouse Housing: house What is your relationship status?: Panel score (0-1 are the most socially isolated patients): 1 Do you feel safe at home: Yes Do you feel safe in your relationship?: Yes Exam Narrative Exam Narrative: General: very pleasant, elderly female, laying in the hospital bed with HOB elevated. She is awake and alert. She is thin and pale. She engages in the visit and answers questions appropriately. HEENT: atraumatic, EOMI, mmm, lesion to upper gum protruding out of her mouth, appears malignant. Neck: supple respiratory: respirations appear even and unlabored. GI: +tenderness on palpation Ext: no edema, moves all 4 extremities freely Results Last Vital Signs Temp 36.6 C 11/20/24 11:19 Pulse 78 11/20/24 11:19 Resp 16 11/20/24 11:19 BP 121/55 L 11/20/24 11:19 Pulse Ox 96 11/20/24 11:19 Labs 11/20/24 07:00 11/20/24 07:00 Labs: Laboratory Results - last 24 hr 11/19/24 11/19/24 11/19/24 12:22 12:43 14:10 WBC RBC Hgb Hct MCV MCH MCHC RDW Plt Count MPV Immature Gran % Neutrophils % Lymphocytes % Monocytes % Eosinophils % Basophils % Nucleated RBC % Absolute Neutrophils Absolute Lymphocytes Absolute Monocytes Absolute Eosinophils Absolute Basophils RBC Morphology Sodium 137 Potassium 3.6 Chloride 99 Carbon Dioxide 30.8 Anion Gap 7.2 BUN 13 Creatinine 0.5 L Est GFR (CKD-EPI 2020) 98.36 Glucose 172 H Calcium 12.1 H* Magnesium Total Bilirubin AST ALT Alkaline Phosphatase Troponin I 10 10 Total Protein Albumin Urine Color Yellow Urine Clarity Sl Cloudy Urine pH 6.0 Ur Specific [place] 1.025 Urine Protein 30 H Urine Ketones 40 H Urine Blood Small H Urine Nitrite Negative Urine Bilirubin Negative Urine Urobilinogen 0.2 Ur Leukocyte Esterase Large H Urine RBC 20-50 H Urine WBC >50 H Ur Epithelial Cells Few Urine Crystals Many Amorphous Urine Bacteria Many Urine Casts 0-2 Hyaline Urine Mucus Trace Ur Culture Indicated? Yes Urine Glucose Negative 11/20/24 07:00 WBC 22.42 H RBC 2.65 L Hgb 8.5 L Hct 26.3 L MCV 99 H MCH 32.1 MCHC 32.3 RDW 13.7 Plt Count 368 MPV 9.9 Immature Gran % 1.5 Neutrophils % 94.2 Lymphocytes % 1.8 Monocytes % 2.2 Eosinophils % 0.0 Basophils % 0.3 Nucleated RBC % 0.0 Absolute Neutrophils 21.12 H Absolute Lymphocytes 0.40 L Absolute Monocytes 0.49 Absolute Eosinophils 0.00 Absolute Basophils 0.07 RBC Morphology Normal Sodium 140 Potassium 3.6 Chloride 103 Carbon Dioxide 30.4 Anion Gap 6.6 BUN 22 H Creatinine 0.4 L Est GFR (CKD-EPI 2020) 103.79 Glucose 169 H Calcium 12.3 H* Magnesium 1.3 L Total Bilirubin 0.30 AST 14 L ALT 15 Alkaline Phosphatase 163 H Troponin I Total Protein 5.5 L Albumin 1.6 L Urine Color Urine Clarity Urine pH Ur Specific [place] Urine Protein Urine Ketones Urine Blood Urine Nitrite Urine Bilirubin Urine Urobilinogen Ur Leukocyte Esterase Urine RBC Urine WBC Ur Epithelial Cells Urine Crystals Urine Bacteria Urine Casts Urine Mucus Ur Culture Indicated? Urine Glucose Time Spent Time Spent with Patient Time Spent(min): 92
--- NOTE | 2024-11-20 12:47 | NUR.NOTE ---
patient AxOx4 this shift, VSS, poor appetite, reports consuming boost/ensure in lieu of meals at home. Patient reports occassional abd pain, IV morphine prn and working well per pt reports. Patient showered this AM, pending palliative consult, pending POCT for glucose (hx DM), growing e coli and strep B in urine. IVF running, bed alarm on, call junior in reach, at bedside. Nursing Note:
--- NOTE | 2024-11-20 13:52 | W.PM.PROGNOT ---
Date of Service Date of service: 11/20/24 Time of Service: 13:52 Assessment and Plan Assessment and plan (1) Hypercalcemia of malignancy: Status: Acute Assessment and plan: - no change in Ca overnight, will continue to follow - start IV hydration with NS - Zometa 4mg x 1 to be administered today - PT/OT eval (2) Vaginal cancer: Assessment and plan: - palliative care to meet with patient and family today to discuss transition to hospice care - per my previous conversation, patient is DNR/DNI (3) HTN (hypertension): Assessment and plan: - hold amlodpine for now - replete magnesium IV (1.3 today) (4) Hypothyroidism: Assessment and plan: - continue levothyroxine 25mcg daily (5) Hyperlipidemia: Assessment and plan: - will hold atorvastatin for now (6) Acute UTI: Status: Acute Assessment and plan: - urine culture results noted, e coli and group G strep - will start IV unsasyn, await final culture results - can ticket dispenser changer to PO pending disposition Subjective Subjective Interval history since last seen: Seen and examined. Awake, looks comfortable. Denies any specific pain. Of note, Zometa was not given last night as ordered, should be administered this AM. VSS otherwise. Exam Const General: cooperative, comfortable and no acute distress Nutritional Appearance: cachectic Orientation: alert, awake and oriented x3 Chest Chest: normal inspection of the chest Resp Effort & Inspection: normal respiratory effort Auscultation: clear to auscultation bilaterally, no rales, no rhonchi and no wheezes GI Inspection: normal to inspection Palpation: soft Auscultation: hypoactive bowel sounds Skin General skin exam: no rashes or lesions noted Extrem General: no pedal edema Objective Last Vital Signs Temp 36.6 C 11/20/24 11:19 Pulse 78 11/20/24 11:19 Resp 16 11/20/24 11:19 BP 121/55 L 11/20/24 11:19 Pulse Ox 96 11/20/24 11:19 Laboratory Results - last 24 hr 11/19/24 11/19/24 11/20/24 12:43 14:10 07:00 WBC 22.42 H RBC 2.65 L Hgb 8.5 L Hct 26.3 L MCV 99 H MCH 32.1 MCHC 32.3 RDW 13.7 Plt Count 368 MPV 9.9 Immature Gran % 1.5 Neutrophils % 94.2 Lymphocytes % 1.8 Monocytes % 2.2 Eosinophils % 0.0 Basophils % 0.3 Nucleated RBC % 0.0 Absolute Neutrophils 21.12 H Absolute Lymphocytes 0.40 L Absolute Monocytes 0.49 Absolute Eosinophils 0.00 Absolute Basophils 0.07 RBC Morphology Normal Sodium 137 140 Potassium 3.6 3.6 Chloride 99 103 Carbon Dioxide 30.8 30.4 Anion Gap 7.2 6.6 BUN 13 22 H Creatinine 0.5 L 0.4 L Est GFR (CKD-EPI 2020) 98.36 103.79 Glucose 172 H 169 H Calcium 12.1 H* 12.3 H* Magnesium 1.3 L Total Bilirubin 0.30 AST 14 L ALT 15 Alkaline Phosphatase 163 H Troponin I 10 Total Protein 5.5 L Albumin 1.6 L Urine Color Yellow Urine Clarity Sl Cloudy Urine pH 6.0 Ur Specific [place] 1.025 Urine Protein 30 H Urine Ketones 40 H Urine Blood Small H Urine Nitrite Negative Urine Bilirubin Negative Urine Urobilinogen 0.2 Ur Leukocyte Esterase Large H Urine RBC 20-50 H Urine WBC >50 H Ur Epithelial Cells Few Urine Crystals Many Amorphous Urine Bacteria Many Urine Casts 0-2 Hyaline Urine Mucus Trace Ur Culture Indicated? Yes Urine Glucose Negative Time Spent with Patient Time Spent with Patient: <25 minutes Time was spent: preparing to see the patient(eg.review tests), ordering medications,tests, procedures, indepentently interpreting results, counseling the patient and care coordination
[2024-11-20] MEDS: AMPICILLIN/SULBACTAM 3 GM in Normal Saline 100 ML IVPB ×2 (14:27→20:04)
--- NOTE | 2024-11-20 14:40 | CHAPLAIN ---
I visited with Thais a couple of times today. She is feeling overwhelmed at times. She said she feels like she can't think of the words fast enough to say in response to questions she is asked and she's worried that this frustrates people. She has growth on her mouth that bothers her, but she told the nurse she's not well enough to go see an oral surgeon or anyone about it. Thais, her and daughter met with SHIRA Patricia, from [facility]iative [facility] today. She will likely go home tomorrow after equipment, including a bed is ordered. I stop in a see Thais again before I leave. She told me that she loves the Lord and knows she is loved.
[2024-11-20] MEDS: MAGNESIUM SULFATE 2 GM/50 ML BAG IV_INF (15:21)
[2024-11-20 15:34] VITALS: BP 120/61; PULSE 78; RESP 17; TEMP 36.7; O2SAT 94
[2024-11-20] MEDS: OLANZapine 5 MG TAB PO (20:05)
[2024-11-20] MEDS: traZODone 50 MG TAB PO (20:05)
[2024-11-20 23:38] VITALS: BP 134/60; PULSE 83; RESP 19; TEMP 36.6; O2SAT 95
[2024-11-21] MEDS: Normal Saline 1,000 ML 100 ML IV ×2 (00:34→10:21)
[2024-11-21] MEDS: AMPICILLIN/SULBACTAM 3 GM in Normal Saline 100 ML IVPB ×2 (01:47→08:43)
[2024-11-21] MEDS: Levothyroxine 25 MCG TAB PO (06:23)
[2024-11-21] MEDS: MORPHine 4 MG/ML SYR IVP ×2 (06:59→10:17)
[2024-11-21 07:14] LABS: Abs Immature Grans 0.28 10^3/uL (0.0-0.06); Absolute Basophil Count 0.07 10^3/uL (0.0-0.2); Absolute Eosinophil Count 0.07 10^3/uL (0.0-0.7); Absolute Monocyte Count 0.91 10^3/uL (0.1-0.8); Basophils % 0.3 %; Eosinophils % 0.3 %; HCT 27.1 % (36.0-46.0); HGB 8.6 g/dL (11.2-15.7); Immature Grans % 1.3 %; Lymphocytes % 2.5 %; MCH 31.3 pg (27.0-33.0); MCHC 31.7 % (32.0-36.0); MCV 99 fL (80-95); MPV 9.4 fL (8.0-11.0); Monocytes % 4.1 %; Neutrophils % 91.5 %; Platelet Count 367 10^3/uL (130-400); RBC 2.75 10^6/uL (3.93-5.22); RDW-SD 50.4 fL; WBC 22.17 10^3/uL (4.4-10.8)
[2024-11-21 07:26] LABS: Absolute Lymphocyte Count 0.55 10^3/uL (1.2-3.4); Absolute Neutrophil Count 20.29 10^3/uL (1.2-6.7)
[2024-11-21 07:27] LABS: Anion Gap 3.5 mmol/L (3-11); BUN 12 mg/dL (7-18); CO2 31.5 mmol/L (21.0-32.0); CREATININE 0.4 mg/dL (0.55-1.02); Calcium 10.8 mg/dL (8.5-10.1); Chloride 105 mmol/L (98-107); Estimated GFR 103.79 (mL/min/1.73m2); Glucose 161 mg/dL (74-106); Magnesium 1.7 mg/dL (1.8-2.4); Sodium 140 mmol/L (136-145)
[2024-11-21 07:38] LABS: Potassium 2.9 mmol/L (3.5-5.1)
[2024-11-21 07:45] LABS: Diff Comment Diff Reviewed; RBC Morphology Normal
[2024-11-21 07:49] VITALS: BP 147/57; PULSE 88; RESP 17; TEMP 36.6; O2SAT 88
[2024-11-21 07:59] VITALS: O2SAT 94
[2024-11-21] MEDS: Aspirin E.C. 81 MG TABEC PO (08:36)
[2024-11-21] MEDS: Potassium Chloride 20 MEQ TABCR 40 MEQ PO (08:36)
[2024-11-21] MEDS: Magnesium Oxide 400 MG TAB PO (08:37)
--- NOTE | 2024-11-21 11:33 | PDOC.CMPRO ---
Date of service: 11/21/24 Time of Service: 11:33 Care Management Progress Note Discharge Potential Discharge Needs: Other (home on hospice) Anticipated Barriers to Discharge: None Identified Patient/Family Education Needs: Review discharge instructions, discuss Ask Me Three Transportation: EMS (.) Plan: Anticipate Thais will be discharged home and admitted to hospice this weekend. She will follow up with the hospice team and her community supports and transport via EMS. CM will follow and continue to support discharge planning efforts Social Determinants of Health Screening Will the Patient Participate in the Screening?: Declined to provide
--- NOTE | 2024-11-21 13:37 | DSE_ITS ---
Date of service: 11/21/24 Time of Service: 13:37 DS: Diagnosis Discharge Diagnosis (1) Hypercalcemia of malignancy: Status: Acute (2) Vaginal cancer: (3) Cancer-related pain: Status: Acute (4) HTN (hypertension): (5) Hypothyroidism: (6) Hyperlipidemia: (7) Acute UTI: Status: Acute (8) Palliative care patient: Status: Acute (9) Advanced care planning/counseling discussion: Status: Acute Discharge Plan Disposition Patient Disposition: Home W/Hospice Services Condition: Poor Discharge Details Reason For Visit: Hypecalcemia Admit Date/Time: 11/19/24 17:42 Admit Provider: Anselmo Curtis Attending Provider: Anselmo Curtis Primary Care Provider: Giuliana Gonzalez Hospital Course Hospital Course: Per H+P: This is a 74 yo female with pmhx vaginal CA s/p chemo/XRT [place] [facility] [place] that presents todat c/o progressive generalized weakness. Patient is pleasant but a limited historian. Per patient, she was getting treatment at [facility] and thinks she was told that they got all the cancer. However, over the past several weeks she has noticed that she has been getting weaker. Difficulty walking long distances. Poor PO intake with worsening nausea. Also tells me that having a BM has been getting more painful. Today she was not able to ambulate at all which prompted her to call EMS and come to the hospital. 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 In addition, serum Ca was 12.7, corrects to 13.9 with albumin. Patient is now being admitted for treatment of this. For hypercalcemia, patient was hydrated with NS. Single dose of Zometa 4mg was administered 11/20. Ca dropped from 12.3 to 10.8. Patient was found to have UTI. Polymicrobial with group G strep and e. coli. Started on IV Unasyn, was changed over to po Augmentin on discharge. Patient's overlying problem was metastatic vaginal cancer. On admission, ER did d/w oncology that had previously noted treatments previously rendered were palliative and that no further treatment or surgery was indicated. This was discussed with the patient and palliative care was consulted. Eventual decision was to discharge home on hospice. Plan to discharge 11/21. Duragesic patch 12.5mcg was recommended and i will write rx for this until further meds can be ordered/supplied by hospice services. Home Meds and New Rx's Prescriptions: New fentanyl 12 mcg/hr Patch 72 Hour 12 mcg transdermal Q72H 30 Days Qty: 10 0RF amoxicillin-pot clavulanate 875-125 mg tablet 1 tab PO BID Qty: 10 0RF Continued levothyroxine 25 mcg capsule 25 mcg PO DAILY atorvastatin 10 mg tablet 10 mg PO DAILY acetaminophen 650 mg suppository 650 mg MS Q6H PRN (Reason: fever, mild pain) Qty: 6 0RF Rx Instructions: Hospice Patient hyoscyamine sulfate 0.125 mg tablet,disintegrating 0.125 - 0.25 mg PO Q4H PRN (Reason: secretions) Qty: 24 0RF Rx Instructions: Hospice Patient lorazepam 1 mg tablet 1 mg PO Q4H PRN (Reason: anxiety, ANGEL or nausea) Qty: 6 5RF Rx Instructions: Hospice Patient haloperidol lactate 2 mg/mL concentrate 1 mg PO Q6H PRN (Reason: agitation) Qty: 15 0RF Rx Instructions: Hospice Patient prochlorperazine maleate 10 mg tablet 10 mg PO Q6H PRN (Reason: nausea and vomiting) Qty: 6 0RF Rx Instructions: Hospice Patient morphine concentrate 100 mg/5 mL (20 mg/mL) solution 5 - 20 mg PO Q1-4H MDD 5 mL PRN (Reason: moderate to severe pain or shortness of breath) Qty: 30 0RF Rx Instructions: Hospice Patient bisacodyl [Dulcolax (bisacodyl)] 10 mg suppository 10 mg MS daily PRN (Reason: constipation) Qty: 2 0RF Rx Instructions: Hospice Patient Insert 1 supp MS Daily PRN constipation (no BM in 3 days) acetaminophen 650 mg suppository 650 mg MS Q6H PRN (Reason: fever, mild pain) Qty: 6 0RF Rx Instructions: Hospice Patient hyoscyamine sulfate 0.125 mg tablet,disintegrating 0.125 - 0.25 mg PO Q4H PRN (Reason: secretions) Qty: 24 0RF Rx Instructions: Hospice Patient haloperidol lactate 2 mg/mL concentrate 1 mg PO Q6H PRN (Reason: agitation) Qty: 15 0RF Rx Instructions: Hospice Patient morphine concentrate 100 mg/5 mL (20 mg/mL) solution 5 - 20 mg PO Q1-4H MDD 5 mL PRN (Reason: moderate to severe pain or shortness of breath) Qty: 30 0RF Rx Instructions: Hospice Patient prochlorperazine maleate 10 mg tablet 10 mg PO Q6H PRN (Reason: nausea and vomiting) Qty: 6 0RF Rx Instructions: Hospice Patient bisacodyl [Dulcolax (bisacodyl)] 10 mg suppository 10 mg MS daily PRN (Reason: constipation) Qty: 2 0RF Rx Instructions: Hospice Patient Insert 1 supp MS Daily PRN constipation (no BM in 3 days) lorazepam 1 mg tablet 1 mg PO Q4H PRN (Reason: anxiety, ANGEL or nausea) Qty: 6 5RF Rx Instructions: Hospice Patient Aquaphor Baby Healing 41 % ointment 1 applic topical DAILY PRN trazodone 50 mg tablet 50 mg PO QHS Rx Instructions: May take additional 1/2 to 1 tab PRN insomnia amlodipine 10 mg tablet 10 mg PO DAILY desonide 0.05 % ointment 1 applic topical BID silver sulfadiazine [Silvadene] 1 % cream 1 applic topical DAILY PRN prochlorperazine maleate 10 mg tablet 10 mg PO Q6H PRN olanzapine 5 mg tablet 5 mg PO QHS loperamide 2 mg capsule 2 mg PO Q4H PRN Rx Instructions: administer after each loose stool until symptoms controlled; do not exceed 8 mg per 24 hrs aspirin [Adult Aspirin Regimen] 81 mg tablet,delayed release (DR/EC) 81 mg PO DAILY magnesium oxide 400 mg (241.3 mg magnesium) tablet 400 mg PO BID Patient Comments: TAKE ONE TABLET BY MOUTH TWICE A DAY Discharge Instructions Referrals: Giuliana Gonzalez [Primary Care Provider] - Activity:: Activity as Tolerated Equipment/Supplies:: No Equipment Needed Diet:: As Tolerated Discharge Orders Discharge Orders: Discharge Order (Routine); Ordered 11/21/24 Ordered By: Anselmo Curtis DS: Summary Time Spent with Patient providing and/or coordinating discharge services: Greater than 30 minutes Status at Discharge Functional status at discharge: bed bound Overall status at discharge: patient is not back to baseline Mental Status: mental status grossly normal Speech and Movement: speech and movement normal Mood: congruent mood Affect: normal affect Quality:SDOH Health Related Social Needs: No Data to Display Exam Psych Mental Status: mental status grossly normal Speech and Movement: speech and movement normal Mood: congruent mood Affect: normal affect DS: Data Vitals/I&O Vitals and I&O: Vital Signs Temperature 36.6 C 11/21/24 07:49 Temperature Source Temporal Artery Scan 11/21/24 07:49 Pulse 88 11/21/24 07:49 Pulse Rhythm Regular 11/19/24 19:41 Respiratory Rate 17 11/21/24 07:49 Respiratory Effort Normal, Non-Labored 11/19/24 19:41 Respiratory Depth Shallow 11/19/24 19:41 Respiratory Pattern Normal 11/19/24 19:41 Blood Pressure 147/57 H 11/21/24 07:49 Blood Pressure Mean 86 11/19/24 16:00 Blood Pressure Position Supine 11/19/24 08:49 Pulse Oximetry 94 11/21/24 07:59 Oxygen Delivery Method Nasal Cannula 11/21/24 07:59 Oxygen Flow Rate 1 11/21/24 07:59 Pain Level 7 11/21/24 10:17 Comment pt sleeping. VS from DAYNE Mccrary 11/20/24 00:30 Intake & Output 11/20/24 11/21/24 11/21/24 23:59 11:59 23:59 Intake Total 1493.333 / 3160.000 1378.333 / 1378.333 Output Total 200 / 450 800 / 1500 700 / 1500 Balance 1293.333 / 2710.000 578.333 / -121.667 -700 / -121.667 Intake: IV 1293.333 / 2400.000 1378.333 / 1378.333 Oral 200 / 760 Output: Urine 200 / 450 800 / 1500 700 / 1500 Other: Urine Color Yellow Yellow Yellow Urine Appearance Clear Clear Clear Urine Odor None Comment voiding on own in toilet Stool Size Small Stool Characteristics Liquid Data Completed and Pending Labs on day of discharge: Labs from last 24 hours 11/21/24 07:03 WBC 22.17 H RBC 2.75 L Hgb 8.6 L Hct 27.1 L MCV 99 H MCH 31.3 MCHC 31.7 L RDW 14.0 Plt Count 367 MPV 9.4 Immature Gran % 1.3 Neutrophils % 91.5 Lymphocytes % 2.5 Monocytes % 4.1 Eosinophils % 0.3 Basophils % 0.3 Nucleated RBC % 0.0 Absolute Neutrophils 20.29 H Absolute Lymphocytes 0.55 L Absolute Monocytes 0.91 H Absolute Eosinophils 0.07 Absolute Basophils 0.07 RBC Morphology Normal Sodium 140 Potassium 2.9 L* Chloride 105 Carbon Dioxide 31.5 Anion Gap 3.5 BUN 12 Creatinine 0.4 L Est GFR (CKD-EPI 2020) 103.79 Glucose 161 H Calcium 10.8 H Magnesium 1.7 L PFSH All Active Problems (Updated 11/20/24 @ 15:31 by Belem Parish NP) Advanced care planning/counseling discussion (Acute) Palliative care patient (Acute) Cancer-related pain (Acute) Acute UTI (Acute) Hypercalcemia (Acute) Hypercalcemia of malignancy (Acute) Calcific tendinitis of left shoulder (Acute) Diverticulosis (Acute) Medical History Hyperthyroidism Diabetes Hypomagnesemia Hyponatremia Hypokalemia Severe protein-calorie malnutrition Vaginal cancer HTN (hypertension) Hypothyroidism Exertional shortness of breath Left shoulder pain Left knee pain Family history of breast cancer Urge incontinence of urine Hyperlipidemia Type 2 diabetes mellitus Surgical History H/O tooth extraction Hx of biopsy Hx of joint replacement History of colonoscopy 05/08/19 Family History Other Breast cancer Cancer Social History Smoking/Tobacco Use Status: Former Tobacco Use Smoking risk assessment performed?: Yes Alcohol Intake: never Drug use: Never Household members: spouse Housing: house What is your relationship status?: Panel score (0-1 are the most socially isolated patients): 1 Do you feel safe at home: Yes Do you feel safe in your relationship?: Yes Time Spent with Patient Time Spent with Patient: 45-69 minutes Time was spent: preparing to see the patient(eg.review tests), ordering medications,tests, procedures, indepentently interpreting results, counseling the patient and care coordination
--- NOTE | 2024-11-21 16:00 | PDOC.CMDIS ---
Date of service: 11/21/24 Time of Service: 16:00 LACE Index Scoring Tool Questions: Length of Stay (in days): 2 Was the patient admitted via the E.D.?: Yes Comorbidities: Diabetes w/o Complication and Metastatic Solid Tumor E.D. Visits: 2 Answers: Total Score: 12 Risk of Readmission: High Risk Care Management Discharge Plan Reason for Hospitalization: hypercalcemia Discharge Plan: Thais will be discharged home and admitted to hospice this afternoon. Transportation has been coordinated with Chad Suggs by KATHERYN. Thais will follow up with the hospice team and providers. Patient/Family Education Needs: review of discharge instructions, limitations, follow up plan and discuss Ask Me Three Services Needed at Discharge: Home Health Care Services and Transportation SDOH Health Related Social Needs: No Data to Display
== END 2024-11-21 15:26 | disposition hospice, home (50) | DRG 690 ==
LOC: ER 17:42 → MS 18:45
PROVIDERS: Admitting Provider Hospitalist; Emergency Provider Student in an Organized Health Care Education/Training Program; PCP Nurse Practitioner Family; Responsible Provider Hospitalist; Visit Provider Hospitalist
DX: N39.0 Urinary tract infection, site not specified (principal); C78.02 Secondary malignant neoplasm of left lung; C78.01 Secondary malignant neoplasm of right lung; C78.7 Secondary malignant neoplasm of liver and intrahepatic bile duct; N82.3 Fistula of vagina to large intestine; E87.1 Hypo-osmolality and hyponatremia; C77.9 Secondary and unspecified malignant neoplasm of lymph node, unspecified; E83.52 Hypercalcemia; C52 Malignant neoplasm of vagina; E03.9 Hypothyroidism, unspecified; I10 Essential (primary) hypertension; Z66 Do not resuscitate; E78.5 Hyperlipidemia, unspecified; G89.3 Neoplasm related pain (acute) (chronic); Z51.5 Encounter for palliative care; Z92.3 Personal history of irradiation; Z92.21 Personal history of antineoplastic chemotherapy; E11.9 Type 2 diabetes mellitus without complications; E83.42 Hypomagnesemia; E87.6 Hypokalemia; Z87.891 Personal history of nicotine dependence; Z79.899 Other long term (current) drug therapy; B96.20 Unspecified Escherichia coli [E. coli] as the cause of diseases classified elsewhere; B95.4 Other streptococcus as the cause of diseases classified elsewhere; R53.1 Weakness
CPT/HCPCS: 00123; 36415; 74177; 80048; 80053; 83690; 87077; 87637; 93005; 96361; 96365; 96375; 99285; 71260; 81003; 81015; 83735; 84484; 85025; 87086; 87186; 93010; 99223; 99232; 99239; J0295; J0692; J1200; J1650; J2270; J2405; J2919; J3475; J3489; J3490